=== PATIENT | male | born 1960 | race Two or more races ===

== ENCOUNTER 2017-01-28 19:46 | Inpatient (IN) | payer MEDICARE ==
[~2017-01-28] VITALS: Ht 167.6 cm; Wt 79.8 kg
[2017-01-28] MEDS ORDERED: ACETAMINOPHEN 500 MG TABLET PO ONE (20:30)
[2017-01-28] MEDS ORDERED: SODIUM CHLORIDE FLUSH 10ML SYR IVF ONE (20:30)
[2017-01-28] MEDS ORDERED: SODIUM CHLORIDE 0.9% 1,000ML IVBOLUS ONE (20:30)
[2017-01-28] MEDS ORDERED: DIPH,PERTUSS(ACELL),TET VAC/PF 0.5 ML IM-VACC ONE ×2 (20:30→20:34)
[2017-01-28] MEDS ORDERED: ACETAMINOPHEN 500 MG TABLET ONE (20:33)
[2017-01-28] MEDS ORDERED: NAPR500T3 PO (21:10)
[2017-01-28] MEDS ORDERED: HIGH BP MED (21:12)
[2017-01-28] MEDS ORDERED: INSU100C5 SQ-INSULIN (21:12)
[2017-01-28] MEDS ORDERED: BP MED (21:12)
[2017-01-28 21:48] LABS: ASPARTATE AMINO TRANSFERASE 25 U/L (15-37); BLOOD UREA NITROGEN 32 mg/dL (7-18)
[2017-01-28 21:56] LABS: C-REACTIVE PROTEIN, QUANT > 19.00 mg/dL (0.02-0.49)
[2017-01-28] MEDS ORDERED: VANCOMYCIN 1,600 MG in SODIUM CHLORIDE 0.9% 250 ML IV ONE (22:00)
[2017-01-28] MEDS ORDERED: CEFTRIAXONE 1,000 MG IM ONE ×2 (22:00)
[2017-01-28] MEDS ORDERED: VANCOMYCIN PER PHARMACY MC ONE (22:00)
[2017-01-28] MEDS ORDERED: PHARMACOKINETIC CONSULTATION MC ONE (22:00)
[2017-01-28] MEDS ORDERED: CEFTRIAXONE PMX 1GM/50ML 50 ML ONE (22:05)
[2017-01-28 22:09] LABS: DIFF TOTAL CELLS COUNTED 100 CELL DIFF
[2017-01-28] MEDS ORDERED: CEFTRIAXONE 1,000 MG ONE (22:10)
[2017-01-28 22:13] LABS: VERIFY COUNTS? YES
[2017-01-28] MEDS ORDERED: CEFTRIAXONE PMX 2GM/50ML 50 ML ONE (22:15)
[2017-01-28] MEDS ORDERED: CEFTRIAXONE 2 GM in SODIUM CHLORIDE 0.9% 50 ML IV ONE (23:00)
[2017-01-28] MEDS ORDERED: CEFTRIAXONE 1,000 MG in SODIUM CHLORIDE 0.9% 50 ML IV SCH (23:30)
[2017-01-28] MEDS ORDERED: VANCOMYCIN PER PHARMACY MC PRN (23:30)
[2017-01-28] MEDS ORDERED: morphine SULFATE 10 MG/ML, 1ML IVPush PRN (23:30)
[2017-01-28] MEDS ORDERED: BISACODYL 10 MG SUPP PR PRN (23:30)
[2017-01-28] MEDS: HEPARIN 5,000 UNITS/ML, 1ML SQ SCH (23:30)
[2017-01-28] MEDS ORDERED: POLYETHYLENE GLYCOL 17 GM PACKET PO PRN (23:30)
[2017-01-29 00:51] VITALS: BP 119/60
[2017-01-29] MEDS ORDERED: PHARMACOKINETIC MONITORING MC PRN (01:00)
[2017-01-29] MEDS ORDERED: PHARMACOKINETIC CONSULTATION MC ONE (01:00)
[2017-01-29] MEDS: VANCOMYCIN 1,400 MG in SODIUM CHLORIDE 0.9% 250 ML IV SCH (01:16)
[2017-01-29] MEDS: SODIUM CHLORIDE 0.9% 1,000 ML IV SCH ×2 (01:16→13:08)
[2017-01-29 03:10] VITALS: BP 126/82
[2017-01-29 06:20] LABS: BLOOD UREA NITROGEN 28 mg/dL (7-18)
[2017-01-29 06:25] LABS: ASPARTATE AMINO TRANSFERASE 10 U/L (15-37)
[2017-01-29] MEDS: INSULIN ASPART 100 UNITS/ML, PEN SQ-INSULIN SCH ×5 (07:00→22:17)
[2017-01-29 07:12] VITALS: BP 144/65
[2017-01-29] MEDS ORDERED: GADOBUTROL 7.5 MMOL/7.5 ML PFS ONE (07:52)
[2017-01-29] MEDS: SENNA/DOCUSATE TABLET PO SCH (09:53)
[2017-01-29] MEDS: HEPARIN 5,000 UNITS/ML, 1ML SQ SCH ×2 (09:54→16:38)
[2017-01-29 12:58] VITALS: BP 141/79
[2017-01-29] MEDS: CEFTRIAXONE PMX 1GM/50ML 50 ML IV SCH (13:04)
[2017-01-29] MEDS: INSULIN DETEMIR 100 UNITS/ML, PEN SQ-INSULIN SCH (13:05)
[2017-01-29] MEDS ORDERED: PNEUMOCOCCAL 23 VACCINE IM-VACC ONE (19:00)
[2017-01-29 19:10] VITALS: BP 144/72
[2017-01-29] MEDS: ACETAMINOPHEN 325 MG TABLET PO PRN (19:17)
[2017-01-30] MEDS: HEPARIN 5,000 UNITS/ML, 1ML SQ SCH ×4 (00:21→23:07)
[2017-01-30] MEDS: CEFTRIAXONE PMX 1GM/50ML 50 ML IV SCH (00:21)
[2017-01-30] MEDS: SODIUM CHLORIDE 0.9% 1,000 ML IV SCH ×3 (00:21→21:11)
[2017-01-30] MEDS: INSULIN DETEMIR 100 UNITS/ML, PEN SQ-INSULIN SCH ×3 (00:22→23:09)
[2017-01-30] MEDS: VANCOMYCIN 1,400 MG in SODIUM CHLORIDE 0.9% 250 ML IV SCH ×2 (01:37→18:04)
[2017-01-30 02:15] VITALS: BP 131/67
[2017-01-30 06:14] LABS: BLOOD UREA NITROGEN 19 mg/dL (7-18)
[2017-01-30] MEDS: INSULIN ASPART 100 UNITS/ML, PEN SQ-INSULIN SCH ×4 (07:35→21:12)
[2017-01-30] MEDS: SENNA/DOCUSATE TABLET PO SCH (07:45)
[2017-01-30 08:02] VITALS: BP 143/68
[2017-01-30] MEDS: PIPERACILLIN/TAZO 3.375 GM in SODIUM CHLORIDE 0.9% 50 ML IV SCH ×2 (08:39→14:44)
[2017-01-30] MEDS: ACETAMINOPHEN 325 MG TABLET PO PRN ×2 (08:39→14:43)
[2017-01-30 14:31] VITALS: BP 167/82
[2017-01-30] MEDS: PIPERACILLIN/TAZO/PMX 3.375GM 50 ML IV SCH (20:22)
[2017-01-30 20:37] VITALS: BP 167/77
[2017-01-30] MEDS: ONDANSETRON 2MG/ML, 2ML IVPush PRN (23:08)
[2017-01-31 01:00] VITALS: BP 144/75
[2017-01-31] MEDS: PIPERACILLIN/TAZO/PMX 3.375GM 50 ML IV SCH ×4 (02:00→19:53)
[2017-01-31] MEDS: SODIUM CHLORIDE 0.9% 1,000 ML IV SCH ×3 (05:33→23:51)
[2017-01-31 06:11] LABS: ASPARTATE AMINO TRANSFERASE 23 U/L (15-37); BLOOD UREA NITROGEN 18 mg/dL (7-18)
[2017-01-31 07:03] VITALS: BP 155/76
[2017-01-31] MEDS: INSULIN ASPART 100 UNITS/ML, PEN SQ-INSULIN SCH ×4 (07:39→20:37)
[2017-01-31] MEDS: SENNA/DOCUSATE TABLET PO SCH (07:54)
[2017-01-31] MEDS: HEPARIN 5,000 UNITS/ML, 1ML SQ SCH ×3 (07:55→23:30)
[2017-01-31] MEDS: ACETAMINOPHEN 325 MG TABLET PO PRN ×2 (08:12→14:27)
[2017-01-31] MEDS: INSULIN DETEMIR 100 UNITS/ML, PEN SQ-INSULIN SCH ×2 (12:05→23:52)
[2017-01-31] MEDS: VANCOMYCIN 1,400 MG in SODIUM CHLORIDE 0.9% 250 ML IV SCH (12:06)
[2017-01-31 12:48] VITALS: BP 165/79
[2017-01-31] MEDS: ONDANSETRON 2MG/ML, 2ML IVPush PRN (13:04)
[2017-01-31] MEDS: CLINDAMYCIN PMX 900MG/50ML 50 ML IV SCH ×2 (17:48→23:51)
[2017-01-31 19:27] VITALS: BP 152/78
[2017-02-01 00:46] VITALS: BP 148/71
[2017-02-01] MEDS: PIPERACILLIN/TAZO/PMX 3.375GM 50 ML IV SCH ×2 (01:39→07:50)
[2017-02-01 04:49] LABS: BLOOD UREA NITROGEN 17 mg/dL (7-18)
[2017-02-01] MEDS: ONDANSETRON 2MG/ML, 2ML IVPush PRN ×3 (05:34→17:57)
[2017-02-01] MEDS: VANCOMYCIN 1,400 MG in SODIUM CHLORIDE 0.9% 250 ML IV SCH (05:34)
[2017-02-01 07:16] VITALS: BP 155/77
[2017-02-01] MEDS: SENNA/DOCUSATE TABLET PO SCH (07:49)
[2017-02-01] MEDS: HEPARIN 5,000 UNITS/ML, 1ML SQ SCH ×3 (07:50→22:36)
[2017-02-01] MEDS: INSULIN ASPART 100 UNITS/ML, PEN SQ-INSULIN SCH ×4 (07:59→22:37)
[2017-02-01] MEDS: CLINDAMYCIN PMX 900MG/50ML 50 ML IV SCH (09:08)
[2017-02-01] MEDS: SODIUM CHLORIDE 0.9% 1,000 ML IV SCH ×2 (10:00→15:42)
[2017-02-01] MEDS: INSULIN DETEMIR 100 UNITS/ML, PEN SQ-INSULIN SCH ×2 (11:10→22:37)
[2017-02-01] MEDS: AMPICILLIN/SULBACTAM 3 GM in SODIUM CHLORIDE 0.9% 100 ML IV SCH ×2 (11:57→20:14)
[2017-02-01] MEDS: ACETAMINOPHEN 325 MG TABLET PO PRN (12:03)
[2017-02-01 15:50] VITALS: BP 160/80
[2017-02-01 19:16] VITALS: BP 173/76
[2017-02-02 00:53] VITALS: BP 157/76
[2017-02-02] MEDS: AMPICILLIN/SULBACTAM 3 GM in SODIUM CHLORIDE 0.9% 100 ML IV SCH ×3 (05:02→21:04)
[2017-02-02 06:14] LABS: BLOOD UREA NITROGEN 14 mg/dL (7-18)
[2017-02-02 06:35] LABS: DIFF TOTAL CELLS COUNTED 100 CELL DIFF
[2017-02-02 06:37] LABS: ANISOCYTOSIS 1+; VERIFY COUNTS? YES
[2017-02-02] MEDS: SENNA/DOCUSATE TABLET PO SCH (08:05)
[2017-02-02] MEDS: HEPARIN 5,000 UNITS/ML, 1ML SQ SCH ×3 (08:07→22:49)
[2017-02-02] MEDS: INSULIN ASPART 100 UNITS/ML, PEN SQ-INSULIN SCH ×4 (08:08→21:53)
[2017-02-02] MEDS: SODIUM CHLORIDE 0.9% 1,000 ML IV SCH ×2 (08:10→22:51)
[2017-02-02] MEDS: ONDANSETRON 2MG/ML, 2ML IVPush PRN ×2 (08:10→16:07)
[2017-02-02 09:26] VITALS: BP 157/77
[2017-02-02] MEDS: INSULIN DETEMIR 100 UNITS/ML, PEN SQ-INSULIN SCH ×2 (11:36→21:52)
[2017-02-02 13:31] VITALS: BP 129/70
[2017-02-02 19:24] VITALS: BP 178/84
[2017-02-03 02:26] VITALS: BP 163/79
[2017-02-03] MEDS: AMPICILLIN/SULBACTAM 3 GM in SODIUM CHLORIDE 0.9% 100 ML IV SCH ×3 (04:09→20:12)
[2017-02-03 05:49] LABS: BLOOD UREA NITROGEN 11 mg/dL (7-18)
[2017-02-03] MEDS: INSULIN ASPART 100 UNITS/ML, PEN SQ-INSULIN SCH ×4 (07:00→20:29)
[2017-02-03 08:09] VITALS: BP 163/77
[2017-02-03] MEDS: SENNA/DOCUSATE TABLET PO SCH (08:48)
[2017-02-03] MEDS: HEPARIN 5,000 UNITS/ML, 1ML SQ SCH ×3 (08:48→22:36)
[2017-02-03] MEDS: INSULIN DETEMIR 100 UNITS/ML, PEN SQ-INSULIN SCH (11:31)
[2017-02-03 12:30] VITALS: BP 176/83
[2017-02-03] MEDS: SODIUM CHLORIDE 0.9% 1,000 ML IV SCH (16:33)
[2017-02-03 19:14] VITALS: BP 187/86
[2017-02-03] MEDS ORDERED: INSULIN DETEMIR 100 UNITS/ML, PEN SQ-INSULIN SCH (23:00)
[2017-02-04 01:28] VITALS: BP 137/73
[2017-02-04] MEDS: AMPICILLIN/SULBACTAM 3 GM in SODIUM CHLORIDE 0.9% 100 ML IV SCH ×3 (03:58→20:21)
[2017-02-04] MEDS: SODIUM CHLORIDE 0.9% 1,000 ML IV SCH ×2 (03:59→20:21)
[2017-02-04 04:46] LABS: BLOOD UREA NITROGEN 11 mg/dL (7-18)
[2017-02-04 07:21] VITALS: BP 156/80
[2017-02-04] MEDS: INSULIN ASPART 100 UNITS/ML, PEN SQ-INSULIN SCH ×4 (08:21→20:22)
[2017-02-04] MEDS: SENNA/DOCUSATE TABLET PO SCH (08:22)
[2017-02-04] MEDS: HEPARIN 5,000 UNITS/ML, 1ML SQ SCH ×3 (08:22→23:01)
[2017-02-04] MEDS: INSULIN DETEMIR 100 UNITS/ML, PEN SQ-INSULIN SCH ×2 (11:54→23:02)
[2017-02-04 13:56] VITALS: BP 171/79
[2017-02-04 19:09] VITALS: BP 157/75
[2017-02-05 01:50] VITALS: BP 97/58
[2017-02-05] MEDS: AMPICILLIN/SULBACTAM 3 GM in SODIUM CHLORIDE 0.9% 100 ML IV SCH ×3 (03:59→19:59)
[2017-02-05 05:29] LABS: BLOOD UREA NITROGEN 10 mg/dL (7-18)
[2017-02-05] MEDS: INSULIN ASPART 100 UNITS/ML, PEN SQ-INSULIN SCH ×4 (07:00→20:15)
[2017-02-05 08:00] VITALS: BP 110/70
[2017-02-05] MEDS: HEPARIN 5,000 UNITS/ML, 1ML SQ SCH ×3 (08:24→23:39)
[2017-02-05] MEDS: SENNA/DOCUSATE TABLET PO SCH (08:25)
[2017-02-05] MEDS: SODIUM CHLORIDE 0.9% 1,000 ML IV SCH ×3 (08:25→23:38)
[2017-02-05] MEDS: INSULIN DETEMIR 100 UNITS/ML, PEN SQ-INSULIN SCH ×2 (13:09→23:39)
[2017-02-05 14:30] VITALS: BP 156/82
[2017-02-05 19:02] VITALS: BP 167/79
[2017-02-06 02:45] VITALS: BP 173/77
[2017-02-06] MEDS: AMPICILLIN/SULBACTAM 3 GM in SODIUM CHLORIDE 0.9% 100 ML IV SCH ×3 (03:50→20:04)
[2017-02-06 05:33] LABS: BLOOD UREA NITROGEN 10 mg/dL (7-18)
[2017-02-06 05:37] LABS: ASPARTATE AMINO TRANSFERASE 30 U/L (15-37)
[2017-02-06] MEDS: INSULIN ASPART 100 UNITS/ML, PEN SQ-INSULIN SCH ×4 (07:00→20:23)
[2017-02-06 07:48] VITALS: BP 178/91
[2017-02-06] MEDS ORDERED: POTASSIUM CHLORIDE 20 MEQ TAB.ER.PRT PO ONE ×3 (08:00→18:30)
[2017-02-06] MEDS: SENNA/DOCUSATE TABLET PO SCH (08:10)
[2017-02-06] MEDS: ONDANSETRON 2MG/ML, 2ML IVPush PRN (08:16)
[2017-02-06] MEDS: ACETAMINOPHEN 325 MG TABLET PO PRN ×2 (08:16→20:23)
[2017-02-06] MEDS: HEPARIN 5,000 UNITS/ML, 1ML SQ SCH ×3 (08:17→23:53)
[2017-02-06] MEDS: INSULIN DETEMIR 100 UNITS/ML, PEN SQ-INSULIN SCH ×2 (11:57→23:46)
[2017-02-06 16:51] VITALS: BP 167/79
[2017-02-06 19:51] VITALS: BP 158/74
[2017-02-07 01:36] VITALS: BP 164/78
[2017-02-07] MEDS: AMPICILLIN/SULBACTAM 3 GM in SODIUM CHLORIDE 0.9% 100 ML IV SCH ×3 (03:58→20:56)
[2017-02-07 05:29] LABS: ASPARTATE AMINO TRANSFERASE 38 U/L (15-37); BLOOD UREA NITROGEN 14 mg/dL (7-18)
[2017-02-07] MEDS ORDERED: MAGNESIUM SULFATE PMX 2GM/50ML 50 ML IV ONE (07:30)
[2017-02-07] MEDS: SENNA/DOCUSATE TABLET PO SCH (07:35)
[2017-02-07] MEDS: INSULIN ASPART 100 UNITS/ML, PEN SQ-INSULIN SCH ×4 (07:35→20:56)
[2017-02-07 08:27] VITALS: BP 163/84
[2017-02-07] MEDS: HEPARIN 5,000 UNITS/ML, 1ML SQ SCH ×3 (09:08→23:51)
[2017-02-07] MEDS: INSULIN DETEMIR 100 UNITS/ML, PEN SQ-INSULIN SCH ×2 (11:52→23:52)
[2017-02-07 13:21] VITALS: BP 152/82
[2017-02-07 20:07] VITALS: BP 127/78
[2017-02-08] MEDS: AMPICILLIN/SULBACTAM 3 GM in SODIUM CHLORIDE 0.9% 100 ML IV SCH ×4 (04:04→23:44)
[2017-02-08 04:17] VITALS: BP 158/81
[2017-02-08 05:39] LABS: BLOOD UREA NITROGEN 13 mg/dL (7-18)
[2017-02-08] MEDS: INSULIN ASPART 100 UNITS/ML, PEN SQ-INSULIN SCH ×4 (07:00→20:20)
[2017-02-08 07:10] VITALS: BP 139/74
[2017-02-08] MEDS: SENNA/DOCUSATE TABLET PO SCH (08:21)
[2017-02-08] MEDS: HEPARIN 5,000 UNITS/ML, 1ML SQ SCH ×3 (08:22→23:44)
[2017-02-08] MEDS: INSULIN DETEMIR 100 UNITS/ML, PEN SQ-INSULIN SCH ×2 (12:02→23:32)
[2017-02-08 13:45] VITALS: BP 186/89
[2017-02-08 15:54] VITALS: BP 160/76
[2017-02-08] MEDS: ACETAMINOPHEN 325 MG TABLET PO PRN (16:06)
[2017-02-08 19:40] VITALS: BP 137/77
[2017-02-08] MEDS: DOXYCYCLINE 100MG TABLET PO SCH (20:24)
[2017-02-09 01:18] VITALS: BP 129/72
[2017-02-09 05:11] LABS: BLOOD UREA NITROGEN 15 mg/dL (7-18)
[2017-02-09] MEDS: AMPICILLIN/SULBACTAM 3 GM in SODIUM CHLORIDE 0.9% 100 ML IV SCH ×4 (05:47→23:42)
[2017-02-09] MEDS: INSULIN ASPART 100 UNITS/ML, PEN SQ-INSULIN SCH ×4 (07:00→20:13)
[2017-02-09 07:16] VITALS: BP 149/78
[2017-02-09] MEDS: SENNA/DOCUSATE TABLET PO SCH (09:00)
[2017-02-09] MEDS: HEPARIN 5,000 UNITS/ML, 1ML SQ SCH ×2 (09:27→17:28)
[2017-02-09] MEDS: DOXYCYCLINE 100MG TABLET PO SCH ×2 (09:27→20:12)
[2017-02-09] MEDS: INSULIN DETEMIR 100 UNITS/ML, PEN SQ-INSULIN SCH ×2 (11:28→23:42)
[2017-02-09 13:50] VITALS: BP 171/87
[2017-02-09 19:21] VITALS: BP 163/85
[2017-02-10] MEDS: HEPARIN 5,000 UNITS/ML, 1ML SQ SCH ×3 (02:04→17:41)
[2017-02-10 02:45] VITALS: BP 172/91
[2017-02-10 04:51] LABS: BLOOD UREA NITROGEN 14 mg/dL (7-18)
[2017-02-10 04:54] LABS: ASPARTATE AMINO TRANSFERASE 20 U/L (15-37)
[2017-02-10] MEDS: AMPICILLIN/SULBACTAM 3 GM in SODIUM CHLORIDE 0.9% 100 ML IV SCH ×4 (05:51→23:31)
[2017-02-10 07:00] VITALS: BP 156/86
[2017-02-10] MEDS: INSULIN ASPART 100 UNITS/ML, PEN SQ-INSULIN SCH ×4 (07:00→21:39)
[2017-02-10] MEDS: SENNA/DOCUSATE TABLET PO SCH (08:35)
[2017-02-10] MEDS: ACETAMINOPHEN 325 MG TABLET PO PRN (08:40)
[2017-02-10] MEDS: DOXYCYCLINE 100MG TABLET PO SCH ×2 (08:40→21:39)
[2017-02-10] MEDS: INSULIN DETEMIR 100 UNITS/ML, PEN SQ-INSULIN SCH ×2 (11:59→21:39)
[2017-02-10 13:08] VITALS: BP 174/88
[2017-02-10 15:01] VITALS: BP 146/72
[2017-02-10 19:49] VITALS: BP 150/81
[2017-02-10] MEDS: ONDANSETRON 2MG/ML, 2ML IVPush PRN (21:43)
[2017-02-10] MEDS: OXYcodone IR 5MG TABLET PO PRN (21:49)
[2017-02-11 02:53] VITALS: BP 130/88
[2017-02-11] MEDS: HEPARIN 5,000 UNITS/ML, 1ML SQ SCH ×3 (05:13→21:49)
[2017-02-11] MEDS: AMPICILLIN/SULBACTAM 3 GM in SODIUM CHLORIDE 0.9% 100 ML IV SCH ×3 (05:13→19:41)
[2017-02-11 05:24] LABS: BLOOD UREA NITROGEN 14 mg/dL (7-18)
[2017-02-11 06:51] VITALS: BP 148/80
[2017-02-11] MEDS: INSULIN ASPART 100 UNITS/ML, PEN SQ-INSULIN SCH ×5 (07:00→19:47)
[2017-02-11] MEDS: SENNA/DOCUSATE TABLET PO SCH ×2 (08:02→08:28)
[2017-02-11] MEDS: DOXYCYCLINE 100MG TABLET PO SCH ×3 (08:03→19:41)
[2017-02-11] MEDS: OXYcodone IR 5MG TABLET PO PRN (08:28)
[2017-02-11 13:05] VITALS: BP 149/79
[2017-02-11] MEDS: INSULIN DETEMIR 100 UNITS/ML, PEN SQ-INSULIN SCH (14:16)
[2017-02-11 19:43] VITALS: BP 124/70
[2017-02-12 02:01] VITALS: BP 150/84
[2017-02-12] MEDS: AMPICILLIN/SULBACTAM 3 GM in SODIUM CHLORIDE 0.9% 100 ML IV SCH ×4 (02:17→20:09)
[2017-02-12] MEDS: INSULIN DETEMIR 100 UNITS/ML, PEN SQ-INSULIN SCH ×2 (02:22→16:54)
[2017-02-12] MEDS: HEPARIN 5,000 UNITS/ML, 1ML SQ SCH ×3 (05:39→22:55)
[2017-02-12 05:50] LABS: BLOOD UREA NITROGEN 17 mg/dL (7-18)
[2017-02-12 06:52] VITALS: BP 159/87
[2017-02-12] MEDS: INSULIN ASPART 100 UNITS/ML, PEN SQ-INSULIN SCH ×4 (07:00→20:10)
[2017-02-12] MEDS: DOXYCYCLINE 100MG TABLET PO SCH ×2 (08:30→20:10)
[2017-02-12] MEDS: SENNA/DOCUSATE TABLET PO SCH (08:30)
[2017-02-12 12:27] VITALS: BP 161/79
[2017-02-12 18:51] VITALS: BP 162/78
[2017-02-13] MEDS: AMPICILLIN/SULBACTAM 3 GM in SODIUM CHLORIDE 0.9% 100 ML IV SCH ×4 (01:58→20:17)
[2017-02-13 02:09] VITALS: BP 150/80
[2017-02-13] MEDS: INSULIN ASPART 100 UNITS/ML, PEN SQ-INSULIN SCH ×4 (07:00→20:18)
[2017-02-13 07:55] VITALS: BP 168/89
[2017-02-13] MEDS: SENNA/DOCUSATE TABLET PO SCH (09:00)
[2017-02-13] MEDS: HEPARIN 5,000 UNITS/ML, 1ML SQ SCH ×3 (09:02→22:54)
[2017-02-13] MEDS: INSULIN DETEMIR 100 UNITS/ML, PEN SQ-INSULIN SCH ×2 (09:03→20:18)
[2017-02-13] MEDS: DOXYCYCLINE 100MG TABLET PO SCH ×2 (09:03→20:17)
[2017-02-13 13:00] VITALS: BP 183/96
[2017-02-13] MEDS ORDERED: LABETALOL 5MG/ML, 20ML IVPush PRN (15:00)
[2017-02-13] MEDS: AMLODIPINE 5 MG TABLET PO SCH (15:03)
[2017-02-13 15:40] VITALS: BP 155/85
[2017-02-13] MEDS ORDERED: BISACODYL 10 MG SUPP PR PRN (19:30)
[2017-02-13] MEDS ORDERED: ACETAMINOPHEN 325 MG TABLET PO PRN (19:30)
[2017-02-13] MEDS ORDERED: POLYETHYLENE GLYCOL 17 GM PACKET PO PRN (19:30)
[2017-02-13 19:34] VITALS: BP 154/82
[2017-02-14] MEDS: AMPICILLIN/SULBACTAM 3 GM in SODIUM CHLORIDE 0.9% 100 ML IV SCH ×2 (01:58→08:23)
[2017-02-14 03:16] VITALS: BP 146/78
[2017-02-14 05:33] LABS: BLOOD UREA NITROGEN 12 mg/dL (7-18)
[2017-02-14] MEDS: INSULIN ASPART 100 UNITS/ML, PEN SQ-INSULIN SCH (07:00)
[2017-02-14] MEDS ORDERED: AMOX1TAB64 PO (08:09)
[2017-02-14] MEDS ORDERED: DOXY100C2 PO (08:09)
[2017-02-14] MEDS ORDERED: INSU100V5 SQ-INSULIN (08:10)
[2017-02-14] MEDS ORDERED: AMLO5TAB2 PO (08:11)
[2017-02-14] MEDS ORDERED: INSU100I28 SQ-INSULIN (08:17)
[2017-02-14 08:18] VITALS: BP 160/79
[2017-02-14] MEDS: HEPARIN 5,000 UNITS/ML, 1ML SQ SCH (08:22)
[2017-02-14] MEDS: AMLODIPINE 5 MG TABLET PO SCH (08:23)
[2017-02-14] MEDS: SENNA/DOCUSATE TABLET PO SCH (08:23)
[2017-02-14] MEDS: DOXYCYCLINE 100MG TABLET PO SCH (08:23)
[2017-02-14] MEDS: INSULIN DETEMIR 100 UNITS/ML, PEN SQ-INSULIN SCH (08:24)
== END 2017-02-14 12:30 | disposition home or self-care (01) | DRG 871 ==
LOC: ED 21:39 → EDIP 22:19 → 3NE 01-29 00:13 → DCLOUNGE 02-14 12:03
PROVIDERS: ADMIT Internal Medicine; ATTEND Internal Medicine
DX: A41.9 Sepsis, unspecified organism (principal); N17.0 Acute kidney failure with tubular necrosis; E43 Unspecified severe protein-calorie malnutrition; J18.9 Pneumonia, unspecified organism; E87.1 Hypo-osmolality and hyponatremia; L03.116 Cellulitis of left lower limb; M86.9 Osteomyelitis, unspecified; D64.9 Anemia, unspecified; E11.621 Type 2 diabetes mellitus with foot ulcer; E11.65 Type 2 diabetes mellitus with hyperglycemia; E11.69 Type 2 diabetes mellitus with other specified complication; B07.0 Plantar wart; E11.22 Type 2 diabetes mellitus with diabetic chronic kidney disease; I12.9 Hypertensive chronic kidney disease with stage 1 through stage 4 chronic kidney disease, or unspecified chronic kidney disease; L97.509 Non-pressure chronic ulcer of other part of unspecified foot with unspecified severity; M19.072 Primary osteoarthritis, left ankle and foot; N18.3 Chronic kidney disease, stage 3 (moderate); Z79.4 Long term (current) use of insulin; Z68.28 Body mass index [BMI] 28.0-28.9, adult; Z87.891 Personal history of nicotine dependence
CPT/HCPCS: 36415; 71020; 74000; 76770; 80048; 80053; 81001; 82040; 82570; 82962; 83036; 83605; 83735; 84145; 84156; 85025; 85651; 86140; 86141; 87040; 87070; 87077; 87186; 87205; 90471; 90715; 90732; 93005; 93922; 93970; 96361; 96374; A9585; J0295; J0696; J1644; J1815; J2405; J2543; J3370; J3475; J7030; J7050

== ENCOUNTER → 2017-02-17 | Outpatient (CLI) | payer MEDICARE ==
[~2017-02-17] MED LIST: AMLO5TAB2 PO; AMOX1TAB64 PO; BP MED; DOXY100C2 PO; HIGH BP MED; INSU100C5 SQ-INSULIN; INSU100I28 SQ-INSULIN; INSU100V5 SQ-INSULIN; NAPR500T3 PO
== END | disposition home or self-care (01) ==
LOC: CFH 14:03
PROVIDERS: ATTEND Podiatrist Foot & Ankle Surgery
DX: J90 Pleural effusion, not elsewhere classified (principal); R91.8 Other nonspecific abnormal finding of lung field; E11.621 Type 2 diabetes mellitus with foot ulcer
CPT/HCPCS: 71020

== ENCOUNTER → 2017-02-17 | Outpatient (CLI) | payer MEDICARE | END | disposition home or self-care (01) | LOC: WOUND 10:46 | PROVIDERS: ATTEND Podiatrist Foot & Ankle Surgery | DX: E11.621 Type 2 diabetes mellitus with foot ulcer (principal); L97.521 Non-pressure chronic ulcer of other part of left foot limited to breakdown of skin; E11.40 Type 2 diabetes mellitus with diabetic neuropathy, unspecified; E11.52 Type 2 diabetes mellitus with diabetic peripheral angiopathy with gangrene; I10 Essential (primary) hypertension; E11.22 Type 2 diabetes mellitus with diabetic chronic kidney disease; I12.9 Hypertensive chronic kidney disease with stage 1 through stage 4 chronic kidney disease, or unspecified chronic kidney disease; N18.3 Chronic kidney disease, stage 3 (moderate); E11.69 Type 2 diabetes mellitus with other specified complication; M86.8X8 Other osteomyelitis, other site; M19.072 Primary osteoarthritis, left ankle and foot; E43 Unspecified severe protein-calorie malnutrition; Z68.28 Body mass index [BMI] 28.0-28.9, adult; Z79.4 Long term (current) use of insulin; Z87.01 Personal history of pneumonia (recurrent) | CPT/HCPCS: 97602; G0463; WOU0463 ==

== ENCOUNTER → 2017-02-24 | Outpatient (CLI) | payer MEDICARE | END | disposition home or self-care (01) | LOC: WOUND 14:15 | PROVIDERS: ATTEND Podiatrist Foot & Ankle Surgery | DX: E11.621 Type 2 diabetes mellitus with foot ulcer (principal); L97.521 Non-pressure chronic ulcer of other part of left foot limited to breakdown of skin; E11.52 Type 2 diabetes mellitus with diabetic peripheral angiopathy with gangrene; E11.40 Type 2 diabetes mellitus with diabetic neuropathy, unspecified; E11.22 Type 2 diabetes mellitus with diabetic chronic kidney disease; I12.9 Hypertensive chronic kidney disease with stage 1 through stage 4 chronic kidney disease, or unspecified chronic kidney disease; N18.3 Chronic kidney disease, stage 3 (moderate); M19.072 Primary osteoarthritis, left ankle and foot; E11.69 Type 2 diabetes mellitus with other specified complication; M86.8X8 Other osteomyelitis, other site; Z79.4 Long term (current) use of insulin; Z87.01 Personal history of pneumonia (recurrent); Z87.891 Personal history of nicotine dependence | CPT/HCPCS: 11043 ==

== ENCOUNTER → 2017-03-03 | Outpatient (CLI) | payer MEDICARE | END | disposition home or self-care (01) | LOC: WOUND 14:55 | PROVIDERS: ATTEND Podiatrist Foot & Ankle Surgery | DX: E11.621 Type 2 diabetes mellitus with foot ulcer (principal); L97.521 Non-pressure chronic ulcer of other part of left foot limited to breakdown of skin; E11.40 Type 2 diabetes mellitus with diabetic neuropathy, unspecified; E11.52 Type 2 diabetes mellitus with diabetic peripheral angiopathy with gangrene; E11.65 Type 2 diabetes mellitus with hyperglycemia; E11.22 Type 2 diabetes mellitus with diabetic chronic kidney disease; I12.9 Hypertensive chronic kidney disease with stage 1 through stage 4 chronic kidney disease, or unspecified chronic kidney disease; N18.4 Chronic kidney disease, stage 4 (severe); E11.69 Type 2 diabetes mellitus with other specified complication; M86.8X8 Other osteomyelitis, other site; E43 Unspecified severe protein-calorie malnutrition; Z87.891 Personal history of nicotine dependence; Z87.01 Personal history of pneumonia (recurrent); Z68.28 Body mass index [BMI] 28.0-28.9, adult; Z79.4 Long term (current) use of insulin | CPT/HCPCS: 11043 ==

== ENCOUNTER → 2017-03-10 | Outpatient (CLI) | payer MEDICAID, MEDICARE | END | disposition home or self-care (01) | LOC: WOUND 10:30 | PROVIDERS: ATTEND Podiatrist Foot & Ankle Surgery | DX: E11.621 Type 2 diabetes mellitus with foot ulcer (principal); L97.521 Non-pressure chronic ulcer of other part of left foot limited to breakdown of skin; E11.40 Type 2 diabetes mellitus with diabetic neuropathy, unspecified; E11.52 Type 2 diabetes mellitus with diabetic peripheral angiopathy with gangrene; E11.69 Type 2 diabetes mellitus with other specified complication; M86.8X8 Other osteomyelitis, other site; E11.65 Type 2 diabetes mellitus with hyperglycemia; M19.072 Primary osteoarthritis, left ankle and foot; E11.22 Type 2 diabetes mellitus with diabetic chronic kidney disease; I12.9 Hypertensive chronic kidney disease with stage 1 through stage 4 chronic kidney disease, or unspecified chronic kidney disease; N18.4 Chronic kidney disease, stage 4 (severe); Z68.28 Body mass index [BMI] 28.0-28.9, adult; Z79.4 Long term (current) use of insulin; Z87.891 Personal history of nicotine dependence; Z87.01 Personal history of pneumonia (recurrent) | CPT/HCPCS: 11043 ==

== ENCOUNTER → 2017-03-17 | Outpatient (CLI) | payer MEDICARE | END | disposition home or self-care (01) | LOC: WOUND 10:36 | PROVIDERS: ATTEND Podiatrist Foot & Ankle Surgery | DX: E11.621 Type 2 diabetes mellitus with foot ulcer (principal); L97.521 Non-pressure chronic ulcer of other part of left foot limited to breakdown of skin; E11.52 Type 2 diabetes mellitus with diabetic peripheral angiopathy with gangrene; E11.40 Type 2 diabetes mellitus with diabetic neuropathy, unspecified; I10 Essential (primary) hypertension; Z68.28 Body mass index [BMI] 28.0-28.9, adult; E11.22 Type 2 diabetes mellitus with diabetic chronic kidney disease; I12.9 Hypertensive chronic kidney disease with stage 1 through stage 4 chronic kidney disease, or unspecified chronic kidney disease; N18.4 Chronic kidney disease, stage 4 (severe); E11.69 Type 2 diabetes mellitus with other specified complication; M86.8X8 Other osteomyelitis, other site; Z87.891 Personal history of nicotine dependence; Z87.01 Personal history of pneumonia (recurrent); M19.072 Primary osteoarthritis, left ankle and foot; E43 Unspecified severe protein-calorie malnutrition | CPT/HCPCS: 11043 ==

== ENCOUNTER → 2017-03-24 | Outpatient (CLI) | payer MEDICARE | END | disposition home or self-care (01) | LOC: WOUND 09:47 | PROVIDERS: ATTEND Podiatrist Foot & Ankle Surgery | DX: E11.621 Type 2 diabetes mellitus with foot ulcer (principal); L97.521 Non-pressure chronic ulcer of other part of left foot limited to breakdown of skin; E11.52 Type 2 diabetes mellitus with diabetic peripheral angiopathy with gangrene; E11.40 Type 2 diabetes mellitus with diabetic neuropathy, unspecified; E11.22 Type 2 diabetes mellitus with diabetic chronic kidney disease; I12.9 Hypertensive chronic kidney disease with stage 1 through stage 4 chronic kidney disease, or unspecified chronic kidney disease; N18.4 Chronic kidney disease, stage 4 (severe); E11.69 Type 2 diabetes mellitus with other specified complication; M86.8X8 Other osteomyelitis, other site; M19.072 Primary osteoarthritis, left ankle and foot; Z87.01 Personal history of pneumonia (recurrent); Z87.891 Personal history of nicotine dependence; Z79.4 Long term (current) use of insulin | CPT/HCPCS: 11042 ==

== ENCOUNTER → 2017-03-31 | Outpatient (CLI) | payer MEDICARE | END | disposition home or self-care (01) | LOC: WOUND 09:48 | PROVIDERS: ATTEND Podiatrist Foot & Ankle Surgery | DX: E11.621 Type 2 diabetes mellitus with foot ulcer (principal); L97.521 Non-pressure chronic ulcer of other part of left foot limited to breakdown of skin; E11.22 Type 2 diabetes mellitus with diabetic chronic kidney disease; I12.9 Hypertensive chronic kidney disease with stage 1 through stage 4 chronic kidney disease, or unspecified chronic kidney disease; N18.4 Chronic kidney disease, stage 4 (severe); E11.69 Type 2 diabetes mellitus with other specified complication; M86.8X8 Other osteomyelitis, other site; M19.072 Primary osteoarthritis, left ankle and foot; E11.40 Type 2 diabetes mellitus with diabetic neuropathy, unspecified; E11.52 Type 2 diabetes mellitus with diabetic peripheral angiopathy with gangrene; Z87.891 Personal history of nicotine dependence; Z87.01 Personal history of pneumonia (recurrent); Z79.4 Long term (current) use of insulin; Z99.2 Dependence on renal dialysis | CPT/HCPCS: 15275; Q4132 ==

== ENCOUNTER → 2017-04-07 | Outpatient (CLI) | payer MEDICARE | END | disposition home or self-care (01) | LOC: WOUND 10:02 | PROVIDERS: ATTEND Podiatrist Foot & Ankle Surgery | DX: E11.621 Type 2 diabetes mellitus with foot ulcer (principal); L97.521 Non-pressure chronic ulcer of other part of left foot limited to breakdown of skin; E11.52 Type 2 diabetes mellitus with diabetic peripheral angiopathy with gangrene; E11.40 Type 2 diabetes mellitus with diabetic neuropathy, unspecified; E11.22 Type 2 diabetes mellitus with diabetic chronic kidney disease; I12.9 Hypertensive chronic kidney disease with stage 1 through stage 4 chronic kidney disease, or unspecified chronic kidney disease; N18.4 Chronic kidney disease, stage 4 (severe); Z99.2 Dependence on renal dialysis; Z79.4 Long term (current) use of insulin; Z87.01 Personal history of pneumonia (recurrent); E11.69 Type 2 diabetes mellitus with other specified complication; M86.8X8 Other osteomyelitis, other site; M19.072 Primary osteoarthritis, left ankle and foot; Z87.891 Personal history of nicotine dependence | CPT/HCPCS: 15275; Q4132 ==

== ENCOUNTER → 2017-04-14 | Outpatient (CLI) | payer MEDICARE | END | disposition home or self-care (01) | LOC: WOUND 10:00 | PROVIDERS: ATTEND Podiatrist Foot & Ankle Surgery | DX: E11.621 Type 2 diabetes mellitus with foot ulcer (principal); L97.521 Non-pressure chronic ulcer of other part of left foot limited to breakdown of skin; E11.22 Type 2 diabetes mellitus with diabetic chronic kidney disease; I12.9 Hypertensive chronic kidney disease with stage 1 through stage 4 chronic kidney disease, or unspecified chronic kidney disease; N18.4 Chronic kidney disease, stage 4 (severe); M19.072 Primary osteoarthritis, left ankle and foot; E11.40 Type 2 diabetes mellitus with diabetic neuropathy, unspecified; E11.52 Type 2 diabetes mellitus with diabetic peripheral angiopathy with gangrene; E11.69 Type 2 diabetes mellitus with other specified complication; M86.8X8 Other osteomyelitis, other site; Z99.2 Dependence on renal dialysis; Z79.4 Long term (current) use of insulin; Z87.891 Personal history of nicotine dependence; Z87.01 Personal history of pneumonia (recurrent) | CPT/HCPCS: 15275; Q4132 ==

== ENCOUNTER → 2017-04-21 | Outpatient (CLI) | payer MEDICARE | END | disposition home or self-care (01) | LOC: WOUND 10:30 | PROVIDERS: ATTEND Podiatrist Foot & Ankle Surgery | DX: E11.621 Type 2 diabetes mellitus with foot ulcer (principal); L97.521 Non-pressure chronic ulcer of other part of left foot limited to breakdown of skin; E11.52 Type 2 diabetes mellitus with diabetic peripheral angiopathy with gangrene; E11.40 Type 2 diabetes mellitus with diabetic neuropathy, unspecified; E11.22 Type 2 diabetes mellitus with diabetic chronic kidney disease; I12.9 Hypertensive chronic kidney disease with stage 1 through stage 4 chronic kidney disease, or unspecified chronic kidney disease; N18.4 Chronic kidney disease, stage 4 (severe); E11.69 Type 2 diabetes mellitus with other specified complication; M86.8X8 Other osteomyelitis, other site; M19.072 Primary osteoarthritis, left ankle and foot; Z87.891 Personal history of nicotine dependence; Z87.01 Personal history of pneumonia (recurrent); Z79.4 Long term (current) use of insulin; Z99.2 Dependence on renal dialysis | CPT/HCPCS: 15275; Q4132 ==

== ENCOUNTER → 2017-04-28 | Outpatient (CLI) | payer MEDICARE | END | disposition home or self-care (01) | LOC: WOUND 15:00 | PROVIDERS: ATTEND Podiatrist Foot & Ankle Surgery | DX: E11.621 Type 2 diabetes mellitus with foot ulcer (principal); L97.521 Non-pressure chronic ulcer of other part of left foot limited to breakdown of skin; E11.52 Type 2 diabetes mellitus with diabetic peripheral angiopathy with gangrene; E11.40 Type 2 diabetes mellitus with diabetic neuropathy, unspecified; E11.22 Type 2 diabetes mellitus with diabetic chronic kidney disease; I12.9 Hypertensive chronic kidney disease with stage 1 through stage 4 chronic kidney disease, or unspecified chronic kidney disease; N18.4 Chronic kidney disease, stage 4 (severe); E11.69 Type 2 diabetes mellitus with other specified complication; M86.8X8 Other osteomyelitis, other site; M19.072 Primary osteoarthritis, left ankle and foot; Z87.891 Personal history of nicotine dependence; Z87.01 Personal history of pneumonia (recurrent); Z99.2 Dependence on renal dialysis; Z79.4 Long term (current) use of insulin | CPT/HCPCS: 15275; Q4133 ==

== ENCOUNTER → 2017-05-05 | Outpatient (CLI) | payer MEDICARE | END | disposition home or self-care (01) | LOC: WOUND 08:23 | PROVIDERS: ATTEND Podiatrist Foot & Ankle Surgery | DX: E11.621 Type 2 diabetes mellitus with foot ulcer (principal); L97.521 Non-pressure chronic ulcer of other part of left foot limited to breakdown of skin; E11.52 Type 2 diabetes mellitus with diabetic peripheral angiopathy with gangrene; E11.40 Type 2 diabetes mellitus with diabetic neuropathy, unspecified; E11.22 Type 2 diabetes mellitus with diabetic chronic kidney disease; I12.9 Hypertensive chronic kidney disease with stage 1 through stage 4 chronic kidney disease, or unspecified chronic kidney disease; N18.4 Chronic kidney disease, stage 4 (severe); E11.69 Type 2 diabetes mellitus with other specified complication; M86.8X8 Other osteomyelitis, other site; M19.072 Primary osteoarthritis, left ankle and foot; Z87.891 Personal history of nicotine dependence; Z87.01 Personal history of pneumonia (recurrent); Z99.2 Dependence on renal dialysis; Z79.4 Long term (current) use of insulin | CPT/HCPCS: 11042 ==

== ENCOUNTER → 2017-05-12 | Outpatient (CLI) | payer MEDICARE | END | disposition home or self-care (01) | LOC: WOUND 08:31 | PROVIDERS: ATTEND Podiatrist Foot & Ankle Surgery | DX: E11.621 Type 2 diabetes mellitus with foot ulcer (principal); L97.521 Non-pressure chronic ulcer of other part of left foot limited to breakdown of skin; E11.52 Type 2 diabetes mellitus with diabetic peripheral angiopathy with gangrene; E11.40 Type 2 diabetes mellitus with diabetic neuropathy, unspecified; E11.22 Type 2 diabetes mellitus with diabetic chronic kidney disease; I12.9 Hypertensive chronic kidney disease with stage 1 through stage 4 chronic kidney disease, or unspecified chronic kidney disease; N18.4 Chronic kidney disease, stage 4 (severe); Z79.4 Long term (current) use of insulin; E11.69 Type 2 diabetes mellitus with other specified complication; M86.8X8 Other osteomyelitis, other site; Z87.01 Personal history of pneumonia (recurrent) | CPT/HCPCS: 11042 ==

== ENCOUNTER → 2017-05-19 | Outpatient (CLI) | payer MEDICARE | END | disposition home or self-care (01) | LOC: WOUND 10:00 | PROVIDERS: ATTEND Podiatrist Foot & Ankle Surgery | DX: E11.621 Type 2 diabetes mellitus with foot ulcer (principal); L97.521 Non-pressure chronic ulcer of other part of left foot limited to breakdown of skin; E11.52 Type 2 diabetes mellitus with diabetic peripheral angiopathy with gangrene; E11.40 Type 2 diabetes mellitus with diabetic neuropathy, unspecified; E11.22 Type 2 diabetes mellitus with diabetic chronic kidney disease; I12.9 Hypertensive chronic kidney disease with stage 1 through stage 4 chronic kidney disease, or unspecified chronic kidney disease; N18.4 Chronic kidney disease, stage 4 (severe); Z79.4 Long term (current) use of insulin; E11.69 Type 2 diabetes mellitus with other specified complication; M86.8X8 Other osteomyelitis, other site; Z87.891 Personal history of nicotine dependence | CPT/HCPCS: 15275; Q4172 ==

== ENCOUNTER → 2017-05-26 | Outpatient (CLI) | payer MEDICARE | END | disposition home or self-care (01) | LOC: WOUND 09:38 | PROVIDERS: ATTEND Internal Medicine Cardiovascular Disease | DX: E11.621 Type 2 diabetes mellitus with foot ulcer (principal); L97.521 Non-pressure chronic ulcer of other part of left foot limited to breakdown of skin; E11.52 Type 2 diabetes mellitus with diabetic peripheral angiopathy with gangrene; E11.40 Type 2 diabetes mellitus with diabetic neuropathy, unspecified; E11.22 Type 2 diabetes mellitus with diabetic chronic kidney disease; I12.9 Hypertensive chronic kidney disease with stage 1 through stage 4 chronic kidney disease, or unspecified chronic kidney disease; N18.4 Chronic kidney disease, stage 4 (severe); Z79.4 Long term (current) use of insulin; E11.69 Type 2 diabetes mellitus with other specified complication; M86.8X8 Other osteomyelitis, other site; Z87.891 Personal history of nicotine dependence | CPT/HCPCS: G0463; WOU0463 ==

== ENCOUNTER → 2017-06-02 | Outpatient (CLI) | payer MEDICARE ==
[~2017-06-02] MED LIST changes: -NAPR500T3 PO; +NAPR500T4 PO
== END | disposition home or self-care (01) ==
LOC: WOUND 09:44
PROVIDERS: ATTEND Podiatrist Foot & Ankle Surgery
DX: E11.621 Type 2 diabetes mellitus with foot ulcer (principal); L97.521 Non-pressure chronic ulcer of other part of left foot limited to breakdown of skin; E11.22 Type 2 diabetes mellitus with diabetic chronic kidney disease; I12.9 Hypertensive chronic kidney disease with stage 1 through stage 4 chronic kidney disease, or unspecified chronic kidney disease; N18.4 Chronic kidney disease, stage 4 (severe); E11.69 Type 2 diabetes mellitus with other specified complication; M86.8X8 Other osteomyelitis, other site; E11.40 Type 2 diabetes mellitus with diabetic neuropathy, unspecified; E11.52 Type 2 diabetes mellitus with diabetic peripheral angiopathy with gangrene; Z99.2 Dependence on renal dialysis; Z87.01 Personal history of pneumonia (recurrent); Z79.4 Long term (current) use of insulin
CPT/HCPCS: 11042

== ENCOUNTER → 2017-06-16 | Outpatient (CLI) | payer MEDICARE | END | disposition home or self-care (01) | LOC: WOUND 09:00 | PROVIDERS: ATTEND Podiatrist Foot & Ankle Surgery | DX: E11.621 Type 2 diabetes mellitus with foot ulcer (principal); L97.524 Non-pressure chronic ulcer of other part of left foot with necrosis of bone; E11.52 Type 2 diabetes mellitus with diabetic peripheral angiopathy with gangrene; E11.40 Type 2 diabetes mellitus with diabetic neuropathy, unspecified; E11.69 Type 2 diabetes mellitus with other specified complication; M86.68 Other chronic osteomyelitis, other site; E11.22 Type 2 diabetes mellitus with diabetic chronic kidney disease; I12.9 Hypertensive chronic kidney disease with stage 1 through stage 4 chronic kidney disease, or unspecified chronic kidney disease; N18.4 Chronic kidney disease, stage 4 (severe); Z99.2 Dependence on renal dialysis; Z87.891 Personal history of nicotine dependence; Z79.4 Long term (current) use of insulin | CPT/HCPCS: 11044; 87070; 87077; 87186; 87205 ==

== ENCOUNTER → 2017-06-23 | Outpatient (CLI) | payer MEDICARE | END | disposition home or self-care (01) | LOC: WOUND 09:57 | PROVIDERS: ATTEND Podiatrist Foot & Ankle Surgery | DX: E11.621 Type 2 diabetes mellitus with foot ulcer (principal); L97.524 Non-pressure chronic ulcer of other part of left foot with necrosis of bone; E11.52 Type 2 diabetes mellitus with diabetic peripheral angiopathy with gangrene; E11.69 Type 2 diabetes mellitus with other specified complication; M86.68 Other chronic osteomyelitis, other site; E11.22 Type 2 diabetes mellitus with diabetic chronic kidney disease; I12.9 Hypertensive chronic kidney disease with stage 1 through stage 4 chronic kidney disease, or unspecified chronic kidney disease; N18.4 Chronic kidney disease, stage 4 (severe); Z99.2 Dependence on renal dialysis; M19.072 Primary osteoarthritis, left ankle and foot; Z79.4 Long term (current) use of insulin; Z87.01 Personal history of pneumonia (recurrent) | CPT/HCPCS: 11044 ==

== ENCOUNTER 2017-06-27 16:28 | Inpatient (IN) | payer MEDICARE ==
[~2017-06-27] VITALS: Ht 165.1 cm; Wt 76.2 kg
[2017-06-27] MEDS ORDERED: VANCOMYCIN 1,400 MG in SODIUM CHLORIDE 0.9% 250 ML IV SCH (18:30)
[2017-06-27] MEDS ORDERED: PHARMACOKINETIC MONITORING MC PRN (18:30)
[2017-06-27] MEDS ORDERED: ACETAMINOPHEN 325 MG TABLET PO PRN (18:30)
[2017-06-27] MEDS ORDERED: VANCOMYCIN PER PHARMACY MC PRN (18:30)
[2017-06-27] MEDS ORDERED: POLYETHYLENE GLYCOL 17 GM PACKET PO PRN (18:30)
[2017-06-27] MEDS ORDERED: PHARMACOKINETIC CONSULTATION MC ONE (18:30)
[2017-06-27] MEDS ORDERED: BISACODYL 10 MG SUPP PR PRN (18:30)
[2017-06-27] MEDS ORDERED: MEROPENEM 1 GM in SODIUM CHLORIDE 0.9% 100 ML IV SCH (18:30)
[2017-06-27] MEDS ORDERED: ONDANSETRON 2MG/ML, 2ML IVPush PRN (18:30)
[2017-06-27 18:35] LABS: HEMATOCRIT 37.3 % (39.2-51.8); HEMOGLOBIN 12.5 g/dL (13.7-18.0); WHITE BLOOD COUNT 6.7 x10^3/uL (3.4-10)
[2017-06-27 18:40] LABS: ASPARTATE AMINO TRANSFERASE 12 U/L (15-37); BLOOD UREA NITROGEN 21 mg/dL (7-18)
[2017-06-27 19:41] VITALS: BP 169/84
[2017-06-27] MEDS: OXYcodone IR 5MG TABLET PO PRN (20:29)
[2017-06-27] MEDS: MEROPENEM 1 GM in SODIUM CHLORIDE 0.9% 50 ML IV SCH (20:30)
[2017-06-27] MEDS: INSULIN ASPART 100 UNITS/ML, PEN SQ-INSULIN SCH (21:00)
[2017-06-27] MEDS: SODIUM CHLORIDE FLUSH 10ML SYR IVF SCH (21:22)
[2017-06-27] MEDS: INSULIN DETEMIR 100 UNITS/ML, PEN SQ-INSULIN SCH (21:50)
[2017-06-27] MEDS: HEPARIN 5,000 UNITS/ML, 1ML SQ SCH (21:51)
[2017-06-28 02:19] VITALS: BP 143/80
[2017-06-28] MEDS: MEROPENEM 1 GM in SODIUM CHLORIDE 0.9% 50 ML IV SCH ×2 (04:20→11:33)
[2017-06-28] MEDS: OXYcodone IR 5MG TABLET PO PRN (04:46)
[2017-06-28 05:06] LABS: HEMATOCRIT 36.8 % (39.2-51.8); HEMOGLOBIN 12.5 g/dL (13.7-18.0); WHITE BLOOD COUNT 6.2 x10^3/uL (3.4-10)
[2017-06-28 05:17] LABS: ASPARTATE AMINO TRANSFERASE 9 U/L (15-37); BLOOD UREA NITROGEN 23 mg/dL (7-18)
[2017-06-28] MEDS: HEPARIN 5,000 UNITS/ML, 1ML SQ SCH ×3 (06:17→19:49)
[2017-06-28] MEDS: INSULIN ASPART 100 UNITS/ML, PEN SQ-INSULIN SCH ×4 (07:00→21:30)
[2017-06-28] MEDS: AMLODIPINE 5 MG TABLET PO SCH (07:47)
[2017-06-28] MEDS: SENNA/DOCUSATE TABLET PO SCH (07:47)
[2017-06-28] MEDS: INSULIN DETEMIR 100 UNITS/ML, PEN SQ-INSULIN SCH ×2 (07:47→21:30)
[2017-06-28] MEDS: SODIUM CHLORIDE FLUSH 10ML SYR IVF SCH ×2 (07:47→21:30)
[2017-06-28 07:52] VITALS: BP 145/80
[2017-06-28] MEDS ORDERED: GADOBUTROL 7.5 MMOL/7.5 ML PFS ONE (08:00)
[2017-06-28 16:05] VITALS: BP 99/53
[2017-06-28 19:55] VITALS: BP 129/69
[2017-06-29 01:10] VITALS: BP 129/70
[2017-06-29] MEDS: HEPARIN 5,000 UNITS/ML, 1ML SQ SCH ×2 (01:37→17:52)
[2017-06-29] MEDS: INSULIN ASPART 100 UNITS/ML, PEN SQ-INSULIN SCH ×4 (07:00→22:37)
[2017-06-29 08:39] VITALS: BP 137/73
[2017-06-29] MEDS: INSULIN DETEMIR 100 UNITS/ML, PEN SQ-INSULIN SCH ×2 (09:00→22:38)
[2017-06-29] MEDS: SENNA/DOCUSATE TABLET PO SCH (09:00)
[2017-06-29] MEDS: AMLODIPINE 5 MG TABLET PO SCH (09:00)
[2017-06-29] MEDS: SODIUM CHLORIDE FLUSH 10ML SYR IVF SCH ×2 (09:00→21:00)
[2017-06-29] MEDS ORDERED: LIDOCAINE/PF 1%, 30ML ONE (13:06)
[2017-06-29] MEDS ORDERED: EPINEPHRINE 1 MG/ML, 1ML ONE (13:06)
[2017-06-29] MEDS ORDERED: BUPIVACAINE/PF 0.5% ONE (13:06)
[2017-06-29] MEDS ORDERED: MIDAZOLAM 1 MG/ML, 2ML ONE (13:16)
[2017-06-29] MEDS ORDERED: FENTANYL PF 100 MCG/2ML ONE (13:16)
[2017-06-29] MEDS ORDERED: ONDANSETRON 2MG/ML, 2ML IVPush PRN (14:00)
[2017-06-29] MEDS ORDERED: MIDAZOLAM 1 MG/ML, 2ML IV PRN (14:00)
[2017-06-29] MEDS ORDERED: ACETAMINOPHEN 325 MG TABLET PO PRN (14:00)
[2017-06-29] MEDS ORDERED: DIAZEPAM 5 MG/ML, 2ML IVPush PRN (14:00)
[2017-06-29] MEDS ORDERED: PROMETHAZINE 25 MG/ML, 1ML IV PRN (14:00)
[2017-06-29] MEDS ORDERED: hydrALAzine 20 MG/ML, 1ML IV PRN (14:00)
[2017-06-29] MEDS ORDERED: FENTANYL PF 100 MCG/2ML IV PRN (14:00)
[2017-06-29] MEDS ORDERED: ALBUTEROL/IPRATROPIUM 2.5MG/0.5MG, 3 ML NPPB PRN (14:00)
[2017-06-29] MEDS ORDERED: OXYcodone 5 MG/5 ML ORAL.SOL UDC PO PRN (14:00)
[2017-06-29] MEDS ORDERED: ONDANSETRON 2MG/ML, 2ML ONE (14:35)
[2017-06-29] MEDS ORDERED: CEFAZOLIN 1,000 MG ONE (14:35)
[2017-06-29] MEDS ORDERED: DEXAMETHASONE 4 MG/ML, 1ML ONE (14:35)
[2017-06-29] MEDS ORDERED: PROPOFOL 10 MG/ML, 20ML ONE (14:35)
[2017-06-29] MEDS ORDERED: OXYcodone 5 MG/5 ML ORAL.SOL UDC ONE (15:03)
[2017-06-29] MEDS ORDERED: ACETAMINOPHEN 650 MG/20.3 ML UDC ONE (15:03)
[2017-06-29] MEDS: LABETALOL 5MG/ML, 20ML IV PRN ×2 (15:04→15:36)
[2017-06-29] MEDS ORDERED: hydrALAzine 20 MG/ML, 1ML ONE (15:13)
[2017-06-29 16:00] VITALS: BP 147/78
[2017-06-29] MEDS ORDERED: OXYcodone/APAP 5/325MG TABLET PO PRN (17:00)
[2017-06-29] MEDS ORDERED: ONDANSETRON 2MG/ML, 2ML IV PRN (17:00)
[2017-06-29 18:38] VITALS: BP 139/77
[2017-06-29 23:42] VITALS: BP 114/59
[2017-06-30] MEDS: HEPARIN 5,000 UNITS/ML, 1ML SQ SCH ×3 (02:03→18:13)
[2017-06-30 03:57] VITALS: BP 111/51
[2017-06-30 07:33] VITALS: BP 142/75
[2017-06-30] MEDS: INSULIN ASPART 100 UNITS/ML, PEN SQ-INSULIN SCH ×4 (07:35→21:32)
[2017-06-30] MEDS: INSULIN DETEMIR 100 UNITS/ML, PEN SQ-INSULIN SCH ×2 (07:35→21:32)
[2017-06-30] MEDS: AMLODIPINE 5 MG TABLET PO SCH (07:35)
[2017-06-30] MEDS: SENNA/DOCUSATE TABLET PO SCH (07:36)
[2017-06-30] MEDS: SODIUM CHLORIDE FLUSH 10ML SYR IVF SCH ×2 (10:07→21:00)
[2017-06-30] MEDS ORDERED: PIPERACILLIN/TAZO/PMX 3.375GM 50 ML IV SCH (12:00)
[2017-06-30] MEDS ORDERED: FLU VACC QS2017-18 (36MOS+) UP/PF 0.5 ML IM-VACC ONE (12:30)
[2017-06-30] MEDS ORDERED: DIPHTHERIA-TETANUS ADULT 0.5ML IM-VACC ONE (12:30)
[2017-06-30] MEDS: DAPTOMYCIN 440 MG in SODIUM CHLORIDE 0.9% 100 ML IVPB SCH (13:50)
[2017-06-30 14:30] VITALS: BP 135/72
[2017-06-30] MEDS: PIPERACILLIN/TAZO/PMX 3.375GM 50 ML IV SCH ×2 (15:13→23:01)
[2017-06-30 20:11] VITALS: BP 108/52
[2017-07-01 01:27] VITALS: BP 124/61
[2017-07-01] MEDS: HEPARIN 5,000 UNITS/ML, 1ML SQ SCH ×3 (01:52→18:06)
[2017-07-01] MEDS: PIPERACILLIN/TAZO/PMX 3.375GM 50 ML IV SCH ×3 (06:23→23:32)
[2017-07-01] MEDS: INSULIN ASPART 100 UNITS/ML, PEN SQ-INSULIN SCH ×4 (06:23→21:53)
[2017-07-01 08:29] VITALS: BP 135/77
[2017-07-01] MEDS: AMLODIPINE 5 MG TABLET PO SCH (08:34)
[2017-07-01] MEDS: INSULIN DETEMIR 100 UNITS/ML, PEN SQ-INSULIN SCH ×2 (08:35→21:57)
[2017-07-01] MEDS: SENNA/DOCUSATE TABLET PO SCH (08:35)
[2017-07-01] MEDS: SODIUM CHLORIDE FLUSH 10ML SYR IVF SCH ×2 (09:41→21:52)
[2017-07-01 14:30] VITALS: BP 133/76
[2017-07-01] MEDS: DAPTOMYCIN 440 MG in SODIUM CHLORIDE 0.9% 100 ML IVPB SCH (15:06)
[2017-07-01] MEDS: SODIUM CHLORIDE 0.9% 1,000 ML IV SCH (19:00)
[2017-07-01 19:59] VITALS: BP 145/79
[2017-07-02] MEDS: HEPARIN 5,000 UNITS/ML, 1ML SQ SCH ×3 (02:20→18:01)
[2017-07-02] MEDS: OXYcodone IR 5MG TABLET PO PRN (02:25)
[2017-07-02 02:58] VITALS: BP 138/80
[2017-07-02 05:21] LABS: BLOOD UREA NITROGEN 14 mg/dL (7-18)
[2017-07-02 05:30] LABS: HEMATOCRIT 35.5 % (39.2-51.8); HEMOGLOBIN 12.3 g/dL (13.7-18.0); WHITE BLOOD COUNT 6.9 x10^3/uL (3.4-10)
[2017-07-02] MEDS: INSULIN ASPART 100 UNITS/ML, PEN SQ-INSULIN SCH ×4 (07:00→20:35)
[2017-07-02] MEDS: PIPERACILLIN/TAZO/PMX 3.375GM 50 ML IV SCH ×2 (07:46→18:01)
[2017-07-02 08:50] VITALS: BP 130/73
[2017-07-02] MEDS: INSULIN DETEMIR 100 UNITS/ML, PEN SQ-INSULIN SCH ×2 (09:00→20:53)
[2017-07-02] MEDS: SENNA/DOCUSATE TABLET PO SCH (09:00)
[2017-07-02] MEDS: SODIUM CHLORIDE FLUSH 10ML SYR IVF SCH ×2 (09:14→20:52)
[2017-07-02] MEDS: AMLODIPINE 5 MG TABLET PO SCH (09:14)
[2017-07-02 13:19] VITALS: BP 117/62
[2017-07-02] MEDS: DAPTOMYCIN 440 MG in SODIUM CHLORIDE 0.9% 100 ML IVPB SCH (16:10)
[2017-07-02] MEDS: SODIUM CHLORIDE 0.9% 1,000 ML IV SCH (16:17)
[2017-07-02 19:02] VITALS: BP 126/73
[2017-07-03] MEDS: SODIUM CHLORIDE 0.9% 1,000 ML IV SCH ×2 (01:01→16:51)
[2017-07-03] MEDS: PIPERACILLIN/TAZO/PMX 3.375GM 50 ML IV SCH ×3 (01:01→17:39)
[2017-07-03] MEDS: HEPARIN 5,000 UNITS/ML, 1ML SQ SCH ×3 (02:13→17:39)
[2017-07-03 02:15] VITALS: BP 134/77
[2017-07-03] MEDS: INSULIN ASPART 100 UNITS/ML, PEN SQ-INSULIN SCH ×4 (07:09→20:39)
[2017-07-03 08:47] VITALS: BP 144/83
[2017-07-03] MEDS: SENNA/DOCUSATE TABLET PO SCH (09:38)
[2017-07-03] MEDS: AMLODIPINE 5 MG TABLET PO SCH (09:38)
[2017-07-03] MEDS: SODIUM CHLORIDE FLUSH 10ML SYR IVF SCH ×2 (09:39→20:40)
[2017-07-03] MEDS: INSULIN DETEMIR 100 UNITS/ML, PEN SQ-INSULIN SCH ×2 (09:39→20:40)
[2017-07-03 13:41] VITALS: BP 118/64
[2017-07-03] MEDS: DAPTOMYCIN 440 MG in SODIUM CHLORIDE 0.9% 100 ML IVPB SCH (16:51)
[2017-07-03 19:50] VITALS: BP 143/76
[2017-07-04] MEDS: PIPERACILLIN/TAZO/PMX 3.375GM 50 ML IV SCH ×2 (01:04→09:44)
[2017-07-04] MEDS: OXYcodone IR 5MG TABLET PO PRN (01:04)
[2017-07-04] MEDS: HEPARIN 5,000 UNITS/ML, 1ML SQ SCH ×3 (01:04→18:28)
[2017-07-04] MEDS: SODIUM CHLORIDE 0.9% 1,000 ML IV SCH (01:05)
[2017-07-04 02:32] VITALS: BP 125/62
[2017-07-04 05:08] LABS: BLOOD UREA NITROGEN 20 mg/dL (7-18); C-REACTIVE PROTEIN, QUANT 0.23 mg/dL (0.02-0.49); HEMATOCRIT 34.5 % (39.2-51.8); HEMOGLOBIN 11.7 g/dL (13.7-18.0); WHITE BLOOD COUNT 6.7 x10^3/uL (3.4-10)
[2017-07-04 05:11] LABS: ASPARTATE AMINO TRANSFERASE 13 U/L (15-37)
[2017-07-04] MEDS: INSULIN ASPART 100 UNITS/ML, PEN SQ-INSULIN SCH ×4 (07:00→20:35)
[2017-07-04 07:45] VITALS: BP 146/82
[2017-07-04] MEDS: SENNA/DOCUSATE TABLET PO SCH (09:00)
[2017-07-04] MEDS: AMLODIPINE 5 MG TABLET PO SCH (09:44)
[2017-07-04] MEDS: INSULIN DETEMIR 100 UNITS/ML, PEN SQ-INSULIN SCH ×2 (09:45→20:37)
[2017-07-04] MEDS: SODIUM CHLORIDE FLUSH 10ML SYR IVF SCH ×2 (09:45→20:37)
[2017-07-04] MEDS: ERTAPENEM 1 GM in SODIUM CHLORIDE 0.9% 50 ML IV SCH (13:12)
[2017-07-04 16:10] VITALS: BP 128/74
[2017-07-04] MEDS: DAPTOMYCIN 440 MG in SODIUM CHLORIDE 0.9% 100 ML IVPB SCH (17:08)
[2017-07-04 19:45] VITALS: BP 131/69
[2017-07-04] MEDS: CIPROFLOXACIN 500 MG TABLET PO SCH (20:36)
[2017-07-05] MEDS: OXYcodone IR 5MG TABLET PO PRN (02:06)
[2017-07-05] MEDS: HEPARIN 5,000 UNITS/ML, 1ML SQ SCH ×3 (02:06→17:28)
[2017-07-05] MEDS: SODIUM CHLORIDE 0.9% 1,000 ML IV SCH ×2 (02:07→16:16)
[2017-07-05 02:43] VITALS: BP 117/71
[2017-07-05] MEDS: INSULIN ASPART 100 UNITS/ML, PEN SQ-INSULIN SCH ×4 (06:27→20:59)
[2017-07-05 08:15] VITALS: BP 137/59
[2017-07-05] MEDS: AMLODIPINE 5 MG TABLET PO SCH (09:35)
[2017-07-05] MEDS: SENNA/DOCUSATE TABLET PO SCH (09:36)
[2017-07-05] MEDS: CIPROFLOXACIN 500 MG TABLET PO SCH ×2 (09:36→21:02)
[2017-07-05] MEDS: INSULIN DETEMIR 100 UNITS/ML, PEN SQ-INSULIN SCH ×2 (09:38→20:58)
[2017-07-05] MEDS: SODIUM CHLORIDE FLUSH 10ML SYR IVF SCH ×2 (09:39→20:59)
[2017-07-05] MEDS: ERTAPENEM 1 GM in SODIUM CHLORIDE 0.9% 50 ML IV SCH (13:29)
[2017-07-05 15:11] VITALS: BP 113/63
[2017-07-05] MEDS: DAPTOMYCIN 440 MG in SODIUM CHLORIDE 0.9% 100 ML IVPB SCH (17:28)
[2017-07-05 19:24] VITALS: BP 150/83
[2017-07-06] MEDS: SODIUM CHLORIDE 0.9% 1,000 ML IV SCH ×2 (01:32→10:25)
[2017-07-06] MEDS: HEPARIN 5,000 UNITS/ML, 1ML SQ SCH ×2 (01:32→09:27)
[2017-07-06 02:00] VITALS: BP 124/67
[2017-07-06] MEDS: INSULIN ASPART 100 UNITS/ML, PEN SQ-INSULIN SCH ×2 (06:26→11:00)
[2017-07-06 08:00] VITALS: BP 141/71
[2017-07-06] MEDS: SENNA/DOCUSATE TABLET PO SCH (09:20)
[2017-07-06] MEDS: CIPROFLOXACIN 500 MG TABLET PO SCH (09:20)
[2017-07-06] MEDS: AMLODIPINE 5 MG TABLET PO SCH (09:20)
[2017-07-06] MEDS: SODIUM CHLORIDE FLUSH 10ML SYR IVF SCH (09:22)
[2017-07-06] MEDS: INSULIN DETEMIR 100 UNITS/ML, PEN SQ-INSULIN SCH (09:22)
[2017-07-06] MEDS: ERTAPENEM 1 GM in SODIUM CHLORIDE 0.9% 50 ML IV SCH (13:20)
[2017-07-06] MEDS ORDERED: OXYC1TAB7 PO (14:09)
[2017-07-06] MEDS ORDERED: CIPR500T87 PO (14:09)
[2017-07-06] MEDS ORDERED: ERTA1VIA IV (14:09)
[2017-07-06] MEDS ORDERED: DAPT500V6 IV (14:09)
[2017-07-06 14:30] VITALS: BP 128/75
== END 2017-07-06 16:00 | DRG 239 ==
LOC: 3NE 16:28 → EDSTATUS 06-29 13:00 → 4NOR 06-29 16:15
PROVIDERS: ADMIT Hospitalist; ATTEND Family Medicine
PROC: 0Y6N0Z8 Detachment at Left Foot, Complete 5th Ray, Open Approach (ICD-10-PCS; principal; 2017-06-29 13:00)
PROC: 3E0234Z Introduction of Serum, Toxoid and Vaccine into Muscle, Percutaneous Approach (ICD-10-PCS; 2017-06-30)
PROC: 02HV33Z Insertion of Infusion Device into Superior Vena Cava, Percutaneous Approach (ICD-10-PCS; 2017-07-04)
PROC: B548ZZA Ultrasonography of Superior Vena Cava, Guidance (ICD-10-PCS; 2017-07-04)
PROC: B5181ZA Fluoroscopy of Superior Vena Cava using Low Osmolar Contrast, Guidance (ICD-10-PCS; 2017-07-04)
DX: E11.52 Type 2 diabetes mellitus with diabetic peripheral angiopathy with gangrene (principal); N17.0 Acute kidney failure with tubular necrosis; I96 Gangrene, not elsewhere classified; E11.22 Type 2 diabetes mellitus with diabetic chronic kidney disease; N18.3 Chronic kidney disease, stage 3 (moderate); E11.42 Type 2 diabetes mellitus with diabetic polyneuropathy; L03.116 Cellulitis of left lower limb; M86.8X7 Other osteomyelitis, ankle and foot; E11.69 Type 2 diabetes mellitus with other specified complication; E11.621 Type 2 diabetes mellitus with foot ulcer; I12.9 Hypertensive chronic kidney disease with stage 1 through stage 4 chronic kidney disease, or unspecified chronic kidney disease; E11.65 Type 2 diabetes mellitus with hyperglycemia; L97.529 Non-pressure chronic ulcer of other part of left foot with unspecified severity; B96.5 Pseudomonas (aeruginosa) (mallei) (pseudomallei) as the cause of diseases classified elsewhere; B95.62 Methicillin resistant Staphylococcus aureus infection as the cause of diseases classified elsewhere; B95.2 Enterococcus as the cause of diseases classified elsewhere; Z87.891 Personal history of nicotine dependence; Z23 Encounter for immunization; Z79.4 Long term (current) use of insulin
CPT/HCPCS: 36415; 36569; 76937; 77001; 80048; 80053; 82040; 82550; 82962; 83036; 85025; 85651; 86140; 86141; 87070; 87075; 87205; 88305; 88311; 90686; 90714; A9585; J0171; J0690; J0878; J1100; J1335; J1644; J1815; J2185; J2250; J2405; J2543; J2704; J3010; J3370; J3490; C1751; J0360; J7030; J7050

== ENCOUNTER 2017-11-01 22:05 | Inpatient (IN) | payer MEDICARE ==
[~2017-11-01] VITALS: Ht 182.9 cm; Wt 71.3 kg
[~2017-11-01 22:05] MED LIST changes: +CIPR500T87 PO; +DAPT500V6 IV; +ERTA1VIA IV; +NAPR-685 PO; -NAPR500T4 PO; +OXYC1TAB7 PO
[2017-11-01] MEDS ORDERED: PIPERACILLIN/TAZO/PMX 3.375GM 50 ML ONE (22:52)
[2017-11-01] MEDS ORDERED: PIPERACILLIN/TAZO/PMX 3.375GM 50 ML IVPB ONE (23:00)
[2017-11-01] MEDS ORDERED: SODIUM CHLORIDE 0.9% 1,000ML IVBOLUS ONE (23:00)
[2017-11-01] MEDS ORDERED: VANCOMYCIN PER PHARMACY MC ONE (23:00)
[2017-11-01] MEDS ORDERED: VANCOMYCIN 1,500 MG in SODIUM CHLORIDE 0.9% 250 ML IV ONE (23:00)
[2017-11-01 23:05] LABS: BASOPHILS # (AUTO) 0.01 x10^3/uL (0-0.1); BASOPHILS % (AUTO) 0 % (0-1); EOSINOPHILS % (AUTO) 0 % (1-7); LYMPHOCYTES # (AUTO) 0.68 x10^3/uL (1-3.4); LYMPHOCYTES % (AUTO) 5 % (22-44); MD NO; MEAN CORPUSCULAR HEMOGLOBIN 29.5 pg (27.5-34.5); MEAN CORPUSCULAR HGB CONC 34.3 g/dL (33.2-36.2); MEAN CORPUSCULAR VOLUME 86.2 fL (81-97); MONOCYTES % (AUTO) 5 % (2-9); NEUTROPHILS # (AUTO) 13.64 x10^3/uL (1.8-6.8); NEUTROPHILS % (AUTO) 90 % (42-75); PLATELET COUNT 262 x10^3/uL (130-400); RED BLOOD COUNT 3.71 x10^6/uL (4.38-5.82); RED CELL DISTRIBUTION WIDTH 13.5 % (9.4-14.8)
[2017-11-01 23:17] LABS: ANION GAP 9 mmol/L (5-15); CALCIUM 7.6 mg/dL (8.5-10.1); CHLORIDE 101 mmol/L (98-107); CREATININE 2.29 mg/dL (0.7-1.3)
[2017-11-01 23:18] LABS: ALANINE AMINOTRANSFERASE 12 U/L (12-78)
[2017-11-01 23:19] LABS: ALKALINE PHOSPHATASE 82 U/L (45-117); BILIRUBIN,TOTAL 0.3 mg/dL (0.2-1.0); TOTAL PROTEIN 7.8 g/dL (6.4-8.2)
[2017-11-01] MEDS ORDERED: SODIUM CHLORIDE 0.9% 1,000 ML IV ONE (23:52)
[2017-11-02] MEDS ORDERED: SODIUM CHLORIDE 0.9% 1,000ML IVBOLUS ONE
[2017-11-02] MEDS ORDERED: ACETAMINOPHEN 325 MG TABLET PO PRN
[2017-11-02] MEDS ORDERED: ONDANSETRON 2MG/ML, 2ML IVPush PRN
[2017-11-02] MEDS ORDERED: ONDANSETRON ODT 4 MG PO PRN
[2017-11-02] MEDS ORDERED: ENALAPRILAT 1.25 MG/ML, 2ML IVPush PRN
[2017-11-02] MEDS ORDERED: TEMAZEPAM 15 MG CAPSULE PO PRN
[2017-11-02] MEDS ORDERED: MORPHINE SULFATE 4 MG/ML, 1ML IVPush PRN
[2017-11-02] MEDS ORDERED: INSULIN GLARGINE 100 UNITS/ML, PEN SQ-INSULIN SCH (00:30)
[2017-11-02] MEDS: INSULIN REGULAR 100 UNITS/ML, 3ML VIAL SQ-INSULIN SCH ×3 (00:30→11:55)
[2017-11-02] MEDS ORDERED: PHARMACOKINETIC MONITORING MC PRN (01:00)
[2017-11-02] MEDS ORDERED: PHARMACY MAY ADJ FOR RENAL FX MC PRN (01:00)
[2017-11-02] MEDS ORDERED: VANCOMYCIN PER PHARMACY MC PRN (01:00)
[2017-11-02 01:30] VITALS: BP 136/71
[2017-11-02] MEDS: INSULIN LISPRO 100 UNITS/ML, PEN SQ-INSULIN SCH ×5 (01:30→21:19)
[2017-11-02] MEDS: HEPARIN 5,000 UNITS/ML, 1ML SQ SCH ×2 (01:35→08:35)
[2017-11-02] MEDS: PIPERACILLIN/TAZO 3.375 GM in DEXTROSE 5% 50 ML IVPB SCH ×4 (05:12→23:11)
[2017-11-02 08:00] VITALS: BP 125/75
[2017-11-02 09:33] LABS: BASOPHILS # (AUTO) 0.01 x10^3/uL (0-0.1); BASOPHILS % (AUTO) 0 % (0-1); EOSINOPHILS % (AUTO) 0 % (1-7); LYMPHOCYTES # (AUTO) 1.36 x10^3/uL (1-3.4); LYMPHOCYTES % (AUTO) 11 % (22-44); MD NO; MEAN CORPUSCULAR HEMOGLOBIN 29.1 pg (27.5-34.5); MEAN CORPUSCULAR HGB CONC 33.5 g/dL (33.2-36.2); MEAN CORPUSCULAR VOLUME 86.8 fL (81-97); MEAN PLATELET VOLUME 9.4 fL (7.4-10.4); MONOCYTES # (AUTO) 0.81 x10^3/uL (0.2-0.8); MONOCYTES % (AUTO) 7 % (2-9); NEUTROPHILS # (AUTO) 10.17 x10^3/uL (1.8-6.8); NEUTROPHILS % (AUTO) 82 % (42-75); PLATELET COUNT 225 x10^3/uL (130-400); RED BLOOD COUNT 3.26 x10^6/uL (4.38-5.82); RED CELL DISTRIBUTION WIDTH 13.7 % (9.4-14.8)
[2017-11-02 09:44] LABS: ANION GAP 7 mmol/L (5-15); CALCIUM 7.1 mg/dL (8.5-10.1); CHLORIDE 112 mmol/L (98-107); CREATININE 1.95 mg/dL (0.7-1.3)
[2017-11-02 13:32] VITALS: BP 125/86
[2017-11-02 14:35] LABS: HCT (SEDRATE) 28.7 % (39.2-51.8)
[2017-11-02 14:39] LABS: INTERNATIONAL NORMALIZED RATIO 1.08 (0.93-1.1); PROTHROMBIN TIME 11.2 Seconds (9.6-11.5)
[2017-11-02 15:03] LABS: HEMOGLOBIN A1C 7.4 % (4.2-6.3)
[2017-11-02] MEDS ORDERED: HEPARIN 5,000 UNITS/ML, 1ML SQ SCH (16:00)
[2017-11-02 18:59] VITALS: BP 114/59
[2017-11-02] MEDS: INSULIN GLARGINE 100 UNITS/ML, PEN SQ-INSULIN SCH (21:18)
[2017-11-03] MEDS ORDERED: INSULIN GLARGINE 100 UNITS/ML, PEN SQ-INSULIN SCH (00:30)
[2017-11-03 01:14] VITALS: BP 130/55
[2017-11-03] MEDS: PIPERACILLIN/TAZO 3.375 GM in DEXTROSE 5% 50 ML IVPB SCH ×2 (04:56→12:04)
[2017-11-03] MEDS: INSULIN LISPRO 100 UNITS/ML, PEN SQ-INSULIN SCH ×4 (07:00→20:05)
[2017-11-03 07:32] VITALS: BP 145/75
[2017-11-03] MEDS ORDERED: VANCOMYCIN 1,500 MG in SODIUM CHLORIDE 0.9% 250 ML IV SCH (09:00)
[2017-11-03] MEDS: INSULIN GLARGINE 100 UNITS/ML, PEN SQ-INSULIN SCH ×2 (09:26→17:07)
[2017-11-03 12:09] LABS: BASOPHILS # (AUTO) 0.02 x10^3/uL (0-0.1); BASOPHILS % (AUTO) 0 % (0-1); EOSINOPHILS # (AUTO) 0.26 x10^3/uL (0-0.4); EOSINOPHILS % (AUTO) 4 % (1-7); LYMPHOCYTES # (AUTO) 1.44 x10^3/uL (1-3.4); LYMPHOCYTES % (AUTO) 24 % (22-44); MD NO; MEAN CORPUSCULAR HEMOGLOBIN 29.5 pg (27.5-34.5); MEAN CORPUSCULAR HGB CONC 34.1 g/dL (33.2-36.2); MEAN CORPUSCULAR VOLUME 86.5 fL (81-97); MEAN PLATELET VOLUME 9.7 fL (7.4-10.4); MONOCYTES # (AUTO) 0.96 x10^3/uL (0.2-0.8); MONOCYTES % (AUTO) 16 % (2-9); NEUTROPHILS # (AUTO) 3.27 x10^3/uL (1.8-6.8); NEUTROPHILS % (AUTO) 55 % (42-75); PLATELET COUNT 244 x10^3/uL (130-400); RED BLOOD COUNT 3.47 x10^6/uL (4.38-5.82); RED CELL DISTRIBUTION WIDTH 13.7 % (9.4-14.8)
[2017-11-03 12:43] LABS: ANION GAP 7 mmol/L (5-15); CALCIUM 7.7 mg/dL (8.5-10.1); CHLORIDE 112 mmol/L (98-107); CREATININE 1.52 mg/dL (0.7-1.3)
[2017-11-03 14:06] VITALS: BP 152/78
[2017-11-03] MEDS: DAPTOMYCIN 450 MG in SODIUM CHLORIDE 0.9% 100 ML IV SCH ×2 (16:00→17:23)
[2017-11-03] MEDS: PIPERACILLIN/TAZO/PMX 4.5GM 100 ML IV SCH (17:54)
[2017-11-03] MEDS: D5%-0.45% NACL 1,000 ML IV SCH ×2 (18:24→19:03)
[2017-11-03 20:01] VITALS: BP 151/75
[2017-11-04 02:13] VITALS: BP 168/81
[2017-11-04] MEDS: PIPERACILLIN/TAZO/PMX 4.5GM 100 ML IV SCH ×3 (02:14→18:19)
[2017-11-04] MEDS: D5%-0.45% NACL 1,000 ML IV SCH (05:19)
[2017-11-04 05:51] LABS: BASOPHILS # (AUTO) 0.03 x10^3/uL (0-0.1); BASOPHILS % (AUTO) 1 % (0-1); EOSINOPHILS # (AUTO) 0.35 x10^3/uL (0-0.4); EOSINOPHILS % (AUTO) 6 % (1-7); LYMPHOCYTES # (AUTO) 1.55 x10^3/uL (1-3.4); LYMPHOCYTES % (AUTO) 28 % (22-44); MD NO; MEAN CORPUSCULAR HEMOGLOBIN 29.3 pg (27.5-34.5); MEAN CORPUSCULAR VOLUME 86.3 fL (81-97); MEAN PLATELET VOLUME 9.7 fL (7.4-10.4); MONOCYTES # (AUTO) 0.87 x10^3/uL (0.2-0.8); MONOCYTES % (AUTO) 16 % (2-9); NEUTROPHILS # (AUTO) 2.76 x10^3/uL (1.8-6.8); NEUTROPHILS % (AUTO) 50 % (42-75); PLATELET COUNT 232 x10^3/uL (130-400); RED BLOOD COUNT 3.48 x10^6/uL (4.38-5.82); RED CELL DISTRIBUTION WIDTH 13.6 % (9.4-14.8)
[2017-11-04 06:01] LABS: ANION GAP 8 mmol/L (5-15); CALCIUM 8.1 mg/dL (8.5-10.1); CHLORIDE 110 mmol/L (98-107)
[2017-11-04] MEDS ORDERED: NEOSPORIN OINT, 15GM ONE (06:38)
[2017-11-04] MEDS ORDERED: BUPIVACAINE/PF 0.5% ONE (06:39)
[2017-11-04] MEDS ORDERED: MIDAZOLAM 1 MG/ML, 2ML ONE (06:42)
[2017-11-04] MEDS ORDERED: FENTANYL PF 100 MCG/2ML ONE (06:42)
[2017-11-04] MEDS: INSULIN LISPRO 100 UNITS/ML, PEN SQ-INSULIN SCH ×4 (07:00→21:00)
[2017-11-04] MEDS ORDERED: ONDANSETRON 2MG/ML, 2ML ONE (07:10)
[2017-11-04] MEDS ORDERED: PROPOFOL 10 MG/ML, 20ML ONE (07:10)
[2017-11-04] MEDS ORDERED: LIDOCAINE-MPF 2% ,5ML ONE (07:10)
[2017-11-04 07:11] VITALS: BP 169/80
[2017-11-04] MEDS: INSULIN GLARGINE 100 UNITS/ML, PEN SQ-INSULIN SCH ×3 (07:27→20:59)
[2017-11-04] MEDS ORDERED: ALBUTEROL SULFATE 2.5 MG/3 ML NPPB PRN (07:30)
[2017-11-04] MEDS ORDERED: PROMETHAZINE 25 MG/ML, 1ML IV PRN (07:30)
[2017-11-04] MEDS ORDERED: PROMETHAZINE 12.5 MG SUPP PR PRN (07:30)
[2017-11-04] MEDS ORDERED: HYDROmorphone 1 MG/ML, 1ML IV PRN (07:30)
[2017-11-04] MEDS ORDERED: FENTANYL PF 100 MCG/2ML IV PRN (07:30)
[2017-11-04] MEDS ORDERED: MEPERIDINE/PF 25MG/0.5ML IVPush PRN (07:30)
[2017-11-04] MEDS ORDERED: LORazepam 2 MG/ML, 1ML IVPush PRN (07:30)
[2017-11-04] MEDS ORDERED: ACETAMINOPHEN 325 MG TABLET PO PRN (07:30)
[2017-11-04] MEDS ORDERED: hydrALAzine 20 MG/ML, 1ML IV PRN (07:30)
[2017-11-04] MEDS ORDERED: LABETALOL 5MG/ML, 20ML IV PRN (07:30)
[2017-11-04] MEDS ORDERED: OXYcodone 5 MG/5 ML ORAL.SOL UDC PO PRN (07:30)
[2017-11-04 14:05] VITALS: BP 140/97
[2017-11-04] MEDS: HEPARIN 5,000 UNITS/ML, 1ML SQ SCH (17:00)
[2017-11-04] MEDS: DAPTOMYCIN 450 MG in SODIUM CHLORIDE 0.9% 100 ML IV SCH (17:24)
[2017-11-04 19:08] VITALS: BP 118/66
[2017-11-05 00:48] VITALS: BP 134/78
[2017-11-05] MEDS: HEPARIN 5,000 UNITS/ML, 1ML SQ SCH ×3 (02:45→19:13)
[2017-11-05] MEDS: PIPERACILLIN/TAZO/PMX 4.5GM 100 ML IV SCH ×3 (02:45→19:13)
[2017-11-05 05:27] LABS: ANION GAP 9 mmol/L (5-15); CALCIUM 8.1 mg/dL (8.5-10.1); CHLORIDE 110 mmol/L (98-107)
[2017-11-05 05:29] LABS: CREATININE 1.47 mg/dL (0.7-1.3)
[2017-11-05 05:32] LABS: BASOPHILS # (AUTO) 0.03 x10^3/uL (0-0.1); BASOPHILS % (AUTO) 0 % (0-1); EOSINOPHILS # (AUTO) 0.38 x10^3/uL (0-0.4); EOSINOPHILS % (AUTO) 5 % (1-7); LYMPHOCYTES # (AUTO) 1.91 x10^3/uL (1-3.4); LYMPHOCYTES % (AUTO) 26 % (22-44); MD NO; MEAN CORPUSCULAR HEMOGLOBIN 28.6 pg (27.5-34.5); MEAN CORPUSCULAR HGB CONC 33.3 g/dL (33.2-36.2); MEAN CORPUSCULAR VOLUME 85.9 fL (81-97); MEAN PLATELET VOLUME 10.2 fL (7.4-10.4); MONOCYTES # (AUTO) 0.75 x10^3/uL (0.2-0.8); MONOCYTES % (AUTO) 10 % (2-9); NEUTROPHILS % (AUTO) 59 % (42-75); PLATELET COUNT 298 x10^3/uL (130-400); RED BLOOD COUNT 3.59 x10^6/uL (4.38-5.82); RED CELL DISTRIBUTION WIDTH 14.1 % (9.4-14.8)
[2017-11-05] MEDS: INSULIN LISPRO 100 UNITS/ML, PEN SQ-INSULIN SCH ×4 (07:00→22:19)
[2017-11-05 08:24] VITALS: BP 153/99
[2017-11-05] MEDS: INSULIN GLARGINE 100 UNITS/ML, PEN SQ-INSULIN SCH ×2 (09:00→22:18)
[2017-11-05] MEDS: LISINOPRIL 5 MG TABLET PO SCH (11:25)
[2017-11-05 13:25] VITALS: BP 129/69
[2017-11-05] MEDS: DAPTOMYCIN 450 MG in SODIUM CHLORIDE 0.9% 100 ML IV SCH (18:25)
[2017-11-05 18:40] VITALS: BP 141/78
[2017-11-06 00:44] VITALS: BP 120/70
[2017-11-06] MEDS: PIPERACILLIN/TAZO/PMX 4.5GM 100 ML IV SCH ×3 (03:45→20:30)
[2017-11-06] MEDS: HEPARIN 5,000 UNITS/ML, 1ML SQ SCH ×3 (03:46→20:40)
[2017-11-06 05:29] LABS: ABSOLUTE RETICS # 0.024 x10^6/uL (0.5-1.5); BASOPHILS # (AUTO) 0.04 x10^3/uL (0-0.1); BASOPHILS % (AUTO) 1 % (0-1); EOSINOPHILS % (AUTO) 6 % (1-7); LYMPHOCYTES # (AUTO) 2.01 x10^3/uL (1-3.4); LYMPHOCYTES % (AUTO) 24 % (22-44); MD NO; MEAN CORPUSCULAR HEMOGLOBIN 28.4 pg (27.5-34.5); MEAN CORPUSCULAR HGB CONC 33.1 g/dL (33.2-36.2); MEAN CORPUSCULAR VOLUME 85.8 fL (81-97); MEAN PLATELET VOLUME 9.5 fL (7.4-10.4); MONOCYTES # (AUTO) 0.76 x10^3/uL (0.2-0.8); MONOCYTES % (AUTO) 9 % (2-9); NEUTROPHILS # (AUTO) 5.13 x10^3/uL (1.8-6.8); NEUTROPHILS % (AUTO) 61 % (42-75); PLATELET COUNT 263 x10^3/uL (130-400); RED BLOOD COUNT 3.36 x10^6/uL (4.38-5.82); RED BLOOD COUNT 3.37 x10^6/uL (4.38-5.82); RED CELL DISTRIBUTION WIDTH 13.8 % (9.4-14.8); RETICULOCYTE COUNT % 0.72 % (0.5-1.5)
[2017-11-06 06:15] LABS: % IRON SATURATION 31 % (20-55); ANION GAP 8 mmol/L (5-15); CALCIUM 7.8 mg/dL (8.5-10.1); CHLORIDE 110 mmol/L (98-107); CREATININE 1.46 mg/dL (0.7-1.3); IRON LEVEL 48 mcg/dL (65-175); TOTAL IRON BINDING CAPACITY 157 mcg/dL (250-450)
[2017-11-06 06:50] VITALS: BP 142/80
[2017-11-06] MEDS: INSULIN LISPRO 100 UNITS/ML, PEN SQ-INSULIN SCH ×4 (07:00→20:40)
[2017-11-06] MEDS: INSULIN GLARGINE 100 UNITS/ML, PEN SQ-INSULIN SCH ×2 (09:00→20:42)
[2017-11-06] MEDS: LISINOPRIL 5 MG TABLET PO SCH (11:53)
[2017-11-06 13:08] VITALS: BP 130/60
[2017-11-06] MEDS: DAPTOMYCIN 450 MG in SODIUM CHLORIDE 0.9% 100 ML IV SCH (17:39)
[2017-11-06 19:07] VITALS: BP 150/82
[2017-11-07 01:12] VITALS: BP 146/78
[2017-11-07] MEDS: PIPERACILLIN/TAZO/PMX 4.5GM 100 ML IV SCH ×3 (03:55→20:35)
[2017-11-07] MEDS: HEPARIN 5,000 UNITS/ML, 1ML SQ SCH ×3 (03:55→20:43)
[2017-11-07 05:27] LABS: BASOPHILS # (AUTO) 0.04 x10^3/uL (0-0.1); BASOPHILS % (AUTO) 1 % (0-1); EOSINOPHILS # (AUTO) 0.48 x10^3/uL (0-0.4); EOSINOPHILS % (AUTO) 5 % (1-7); LYMPHOCYTES # (AUTO) 2.22 x10^3/uL (1-3.4); LYMPHOCYTES % (AUTO) 24 % (22-44); MD NO; MEAN CORPUSCULAR HEMOGLOBIN 28.9 pg (27.5-34.5); MEAN CORPUSCULAR HGB CONC 33.5 g/dL (33.2-36.2); MEAN CORPUSCULAR VOLUME 86.5 fL (81-97); MEAN PLATELET VOLUME 9.9 fL (7.4-10.4); MONOCYTES # (AUTO) 0.67 x10^3/uL (0.2-0.8); MONOCYTES % (AUTO) 7 % (2-9); NEUTROPHILS # (AUTO) 5.81 x10^3/uL (1.8-6.8); NEUTROPHILS % (AUTO) 63 % (42-75); PLATELET COUNT 315 x10^3/uL (130-400); RED BLOOD COUNT 3.54 x10^6/uL (4.38-5.82); RED CELL DISTRIBUTION WIDTH 14.1 % (9.4-14.8)
[2017-11-07 05:41] LABS: ALBUMIN 2.5 g/dL (3.4-5.0); ANION GAP 8 mmol/L (5-15); CALCIUM 8.2 mg/dL (8.5-10.1); CHLORIDE 110 mmol/L (98-107)
[2017-11-07 05:53] LABS: ALANINE AMINOTRANSFERASE 17 U/L (12-78); ALKALINE PHOSPHATASE 66 U/L (45-117); BILIRUBIN,TOTAL 0.3 mg/dL (0.2-1.0); CREATINE KINASE, TOTAL 41 U/L (39-308); CREATININE 1.36 mg/dL (0.7-1.3); TOTAL PROTEIN 7.3 g/dL (6.4-8.2)
[2017-11-07 05:59] LABS: HCT (SEDRATE) 30.6 % (39.2-51.8)
[2017-11-07 06:45] VITALS: BP 153/88
[2017-11-07] MEDS: INSULIN LISPRO 100 UNITS/ML, PEN SQ-INSULIN SCH ×4 (07:00→20:35)
[2017-11-07] MEDS: LISINOPRIL 5 MG TABLET PO SCH (07:52)
[2017-11-07] MEDS: INSULIN GLARGINE 100 UNITS/ML, PEN SQ-INSULIN SCH (10:11)
[2017-11-07 12:17] VITALS: BP 155/78
[2017-11-07] MEDS: DAPTOMYCIN 450 MG in SODIUM CHLORIDE 0.9% 100 ML IV SCH (17:28)
[2017-11-07 19:54] VITALS: BP 177/92
[2017-11-08 01:49] VITALS: BP 141/93
[2017-11-08] MEDS: PIPERACILLIN/TAZO/PMX 4.5GM 100 ML IV SCH (04:43)
[2017-11-08] MEDS: HEPARIN 5,000 UNITS/ML, 1ML SQ SCH ×3 (04:43→19:38)
[2017-11-08 06:40] VITALS: BP 154/86
[2017-11-08] MEDS: INSULIN LISPRO 100 UNITS/ML, PEN SQ-INSULIN SCH ×4 (07:00→21:12)
[2017-11-08] MEDS: LISINOPRIL 5 MG TABLET PO SCH (07:49)
[2017-11-08] MEDS: INSULIN GLARGINE 100 UNITS/ML, PEN SQ-INSULIN SCH (10:44)
[2017-11-08] MEDS ORDERED: INSU100I11 SQ-INSULIN (11:58)
[2017-11-08] MEDS ORDERED: INSU100I13 SQ-INSULIN (11:58)
[2017-11-08] MEDS ORDERED: LISI5TAB7 PO (11:58)
[2017-11-08] MEDS ORDERED: DAPT500V6 IV (11:58)
[2017-11-08 14:00] VITALS: BP 145/85
[2017-11-08] MEDS: DAPTOMYCIN 450 MG in SODIUM CHLORIDE 0.9% 100 ML IV SCH (18:26)
[2017-11-08 19:17] VITALS: BP 167/96
[2017-11-09 01:25] VITALS: BP 154/91
[2017-11-09] MEDS: HEPARIN 5,000 UNITS/ML, 1ML SQ SCH ×2 (04:10→12:28)
[2017-11-09] MEDS: INSULIN LISPRO 100 UNITS/ML, PEN SQ-INSULIN SCH ×2 (07:54→12:30)
[2017-11-09 08:00] VITALS: BP 141/78
[2017-11-09] MEDS: LISINOPRIL 5 MG TABLET PO SCH (08:14)
[2017-11-09] MEDS: INSULIN GLARGINE 100 UNITS/ML, PEN SQ-INSULIN SCH (08:15)
[2017-11-09 12:31] VITALS: BP 152/86
== END 2017-11-09 16:14 | DRG 853 ==
LOC: ED 23:51 → EDIP 23:52 → 3NE 11-02 00:48
PROVIDERS: ADMIT Hospitalist; ATTEND Hospitalist
PROC: 0Y6R0Z3 Detachment at Right 2nd Toe, Low, Open Approach (ICD-10-PCS; 2017-11-04)
PROC: 0Y6P0Z3 Detachment at Right 1st Toe, Low, Open Approach (ICD-10-PCS; principal; 2017-11-04 06:30)
PROC: 02HV33Z Insertion of Infusion Device into Superior Vena Cava, Percutaneous Approach (ICD-10-PCS; 2017-11-07)
PROC: B548ZZA Ultrasonography of Superior Vena Cava, Guidance (ICD-10-PCS; 2017-11-07)
DX: A41.02 Sepsis due to Methicillin resistant Staphylococcus aureus (principal); N17.0 Acute kidney failure with tubular necrosis; E44.0 Moderate protein-calorie malnutrition; I31.3 Pericardial effusion (noninflammatory); M86.171 Other acute osteomyelitis, right ankle and foot; E11.621 Type 2 diabetes mellitus with foot ulcer; E11.65 Type 2 diabetes mellitus with hyperglycemia; R32 Unspecified urinary incontinence; R15.9 Full incontinence of feces; I13.10 Hypertensive heart and chronic kidney disease without heart failure, with stage 1 through stage 4 chronic kidney disease, or unspecified chronic kidney disease; E11.69 Type 2 diabetes mellitus with other specified complication; E11.42 Type 2 diabetes mellitus with diabetic polyneuropathy; E11.22 Type 2 diabetes mellitus with diabetic chronic kidney disease; E11.21 Type 2 diabetes mellitus with diabetic nephropathy; D64.9 Anemia, unspecified; L97.509 Non-pressure chronic ulcer of other part of unspecified foot with unspecified severity; N18.3 Chronic kidney disease, stage 3 (moderate); Z79.4 Long term (current) use of insulin; Z80.6 Family history of leukemia; Z86.14 Personal history of Methicillin resistant Staphylococcus aureus infection; Z87.01 Personal history of pneumonia (recurrent); Z89.422 Acquired absence of other left toe(s); Z68.21 Body mass index [BMI] 21.0-21.9, adult
CPT/HCPCS: 36415; 36569; 76937; 77001; 80048; 80053; 80202; 82550; 82728; 82962; 83036; 83540; 83550; 83605; 83735; 84145; 85025; 85045; 85610; 85651; 86140; 87040; 87070; 87075; 87076; 87077; 87147; 87186; 87205; 88305; 88311; 93005; 93306; 96365; J0878; J1644; J1815; J2250; J2405; J2543; J2704; J3010; J3370; J3490; C1751; J7030; J7050

== ENCOUNTER 2021-01-23 15:02 | Inpatient (IN) | payer MEDICARE, OTHER ==
[~2021-01-23] VITALS: Ht 167.6 cm; Wt 81.3 kg
[~2021-01-23 15:02] MED LIST changes: +AMLO-150 PO; -AMLO5TAB2 PO; +INSU100I11 SQ-INSULIN; +INSU100I13 SQ-INSULIN; +LISI5TAB7 PO
[2021-01-23 15:59] LABS: BASOPHILS % (AUTO) 0 % (0-1); EOSINOPHILS % (AUTO) 1 % (1-7); LYMPHOCYTES % (AUTO) 10 % (22-44); MEAN CORPUSCULAR HEMOGLOBIN 29.7 pg (27.5-34.5); MEAN CORPUSCULAR HGB CONC 34.1 g/dL (33.2-36.2); MEAN PLATELET VOLUME 8.8 fL (7.4-10.4); MONOCYTES % (AUTO) 9 % (2-9); NEUTROPHILS % (AUTO) 80 % (42-75); PLATELET COUNT 284 x10^3/uL (130-400); RED BLOOD COUNT 3.33 x10^6/uL (4.38-5.82); RED CELL DISTRIBUTION WIDTH 13.3 % (9.4-14.8)
[2021-01-23 16:04] LABS: ALBUMIN 3.2 g/dL (3.4-5.0); ANION GAP 8 mmol/L (5-15); CALCIUM 7.5 mg/dL (8.5-10.1); CHLORIDE 98 mmol/L (98-107)
--- NOTE | 2021-01-23 18:25 | NUR ---
TO ROOM FROM LOBBY. NAD.
--- NOTE | 2021-01-23 18:30 | NUR ---
First contact with pt. Pt reports L foot wound x2 days. Large wound noted to L lateral foot with serous drainage. swelling noted over lateral ankle as well. Pt with hx of DM with peripheral neuropathy and multiple toe amputations. Pt resting in bed, denies pain at this time.
--- NOTE | 2021-01-23 18:59 | NUR ---
RECEIVED REPORT FROM MONSERRAT MERIDA
--- NOTE | 2021-01-23 19:01 | NUR ---
Report to Keiko GERMAN.
--- NOTE | 2021-01-23 19:45 | NUR ---
PT PROVIDE UA SAMPLE, UA SENT TO LAB
[2021-01-23 20:25] LABS: MICROSCOPIC AUTO
--- NOTE | 2021-01-23 20:45 | NUR ---
PT IN RADIOLOGY
[2021-01-23] MEDS ORDERED: SODIUM CHLORIDE 0.9% 1,000ML IVBOLUS ONE (21:00)
[2021-01-23] MEDS ORDERED: VANCOMYCIN 2,000 MG in SODIUM CHLORIDE 0.9% 500 ML IV ONE (21:00)
[2021-01-23] MEDS ORDERED: VANCOMYCIN PER PHARMACY MC ONE (21:00)
[2021-01-23] MEDS ORDERED: PIPERACILLIN/TAZO 3.375 GM in DEXTROSE 5% 50 ML IVPB ONE (21:00)
--- NOTE | 2021-01-23 21:00 | NUR ---
PT RETURNED FROM US, 20G IN RIGHT FOREARM, BLOOD CULTURES DRAW AND ANTIBIOTICS STARTED. PT RESTING ON GURNEY, DENIES NEEDS AT THIS TIME.
[2021-01-23] MEDS ORDERED: ASPI-614 PO (21:50)
[2021-01-23] MEDS ORDERED: GABA600T7 PO (21:52)
--- NOTE | 2021-01-23 22:20 | NUR ---
PT RESTING ON GURNEY, DENIES NEEDS AT THIS TIME.
--- NOTE | 2021-01-23 22:20 | NUR ---
Pt to be admitted to NEURO TELE, room 490-1. Report called to MONSERRAT ROMERO.
[2021-01-23] MEDS ORDERED: PIPERACILLIN/TAZO 3.375 GM in DEXTROSE 5% 50 ML IV SCH (23:00)
[2021-01-23] MEDS ORDERED: PHARMACOKINETIC MONITORING MC PRN (23:00)
[2021-01-23] MEDS ORDERED: PHARMACOKINETIC CONSULTATION MC ONE (23:00)
[2021-01-23] MEDS ORDERED: GABAPENTIN 300 MG CAPSULE PO PRN (23:00)
[2021-01-23] MEDS ORDERED: DEXTROSE 4 GM TAB.CHEW PO PRN (23:00)
[2021-01-23] MEDS ORDERED: DEXTROSE 50%, 50ML SYRINGE IVPush PRN (23:00)
[2021-01-23] MEDS ORDERED: ONDANSETRON 2MG/ML, 2ML IVPush PRN (23:00)
[2021-01-23] MEDS ORDERED: LABETALOL 5MG/ML, 20ML IVPush PRN (23:00)
[2021-01-23] MEDS ORDERED: VANCOMYCIN PER PHARMACY MC PRN (23:00)
[2021-01-23] MEDS ORDERED: GLUCAGON 1 MG IM PRN (23:00)
[2021-01-23] MEDS ORDERED: PHARMACY MAY ADJ FOR RENAL FX MC PRN (23:00)
[2021-01-23 23:10] LABS: ALBUMIN 3.1 g/dL (3.4-5.0); BILIRUBIN, DIRECT 0.1 mg/dL (0.1-0.2)
[2021-01-23 23:12] LABS: BILIRUBIN,INDIRECT 0.3 mg/dL (0.0-2.0); BILIRUBIN,TOTAL 0.4 mg/dL (0.2-1.0); TOTAL PROTEIN 7.2 g/dL (6.4-8.2)
[2021-01-23 23:24] VITALS: BP 146/71
[2021-01-23] MEDS: ATORVASTATIN 80 MG TABLET PO SCH (23:52)
[2021-01-23] MEDS: HEPARIN 5,000 UNITS/ML, 1ML SQ SCH (23:52)
[2021-01-24] MEDS: INSULIN GLARGINE 100 UNITS/ML, PEN SQ-INSULIN SCH ×2 (00:18→20:18)
[2021-01-24 00:31] VITALS: BP 150/72
[2021-01-24 05:44] LABS: CHLORIDE 105 mmol/L (98-107)
[2021-01-24 05:47] LABS: BASOPHILS % (AUTO) 0 % (0-1); EOSINOPHILS % (AUTO) 2 % (1-7); LYMPHOCYTES % (AUTO) 18 % (22-44); MEAN CORPUSCULAR HEMOGLOBIN 30.6 pg (27.5-34.5); MEAN CORPUSCULAR HGB CONC 34.7 g/dL (33.2-36.2); MEAN PLATELET VOLUME 8.9 fL (7.4-10.4); MONOCYTES % (AUTO) 11 % (2-9); NEUTROPHILS % (AUTO) 68 % (42-75); PLATELET COUNT 283 x10^3/uL (130-400); RED BLOOD COUNT 3.25 x10^6/uL (4.38-5.82); RED CELL DISTRIBUTION WIDTH 13.4 % (9.4-14.8)
[2021-01-24 05:54] LABS: ANION GAP 6 mmol/L (5-15); CALCIUM 7.3 mg/dL (8.5-10.1); CHOL/HDL RATIO 1.7; CHOLESTEROL, TOTAL 84 mg/dL (140-239); CREATININE 1.57 mg/dL (0.7-1.3); HDL CHOL % 60 % (26-37); HDL CHOLESTEROL (DIRECT) 50 mg/dL (40-60); LDL CHOLESTEROL,CALCULATED 20 mg/dL (54-169); LDL/HDL RATIO 0.4 (0.5-3.0); TRIGLYCERIDES 71 mg/dL (50-200); VLDL CHOLESTEROL 14 mg/dL (0-25)
[2021-01-24] MEDS: INSULIN LISPRO 100 UNITS/ML, PEN SQ-INSULIN SCH ×4 (07:00→20:11)
[2021-01-24 07:26] VITALS: BP 124/65
[2021-01-24] MEDS: HEPARIN 5,000 UNITS/ML, 1ML SQ SCH ×3 (07:40→23:23)
[2021-01-24] MEDS: SODIUM CHLORIDE FLUSH 10ML SYR IVF SCH ×2 (09:00→20:19)
[2021-01-24] MEDS: SENNA/DOCUSATE TABLET PO SCH (09:16)
[2021-01-24] MEDS: ASPIRIN 81 MG TABLET CHEW PO SCH (09:16)
[2021-01-24] MEDS: MEROPENEM 500 MG in SODIUM CHLORIDE 0.9% 100 ML IV SCH ×2 (10:48→23:14)
[2021-01-24 12:39] VITALS: BP 163/78
[2021-01-24 13:17] VITALS: BP 163/78
[2021-01-24 16:23] LABS: HCT (SEDRATE) 29.7 % (39.2-51.8)
[2021-01-24] MEDS: VANCOMYCIN 1,500 MG in SODIUM CHLORIDE 0.9% 250 ML IV SCH (17:58)
[2021-01-24 19:53] VITALS: BP 148/68
[2021-01-24] MEDS: ATORVASTATIN 80 MG TABLET PO SCH (20:18)
[2021-01-25 01:24] VITALS: BP 143/71
[2021-01-25] MEDS ORDERED: AMLO-150 PO (02:59)
[2021-01-25] MEDS ORDERED: ATOR40TA78 PO (03:00)
[2021-01-25] MEDS ORDERED: GABA-827 PO (03:03)
[2021-01-25 05:25] LABS: BASOPHILS % (AUTO) 1 % (0-1); EOSINOPHILS % (AUTO) 3 % (1-7); LYMPHOCYTES % (AUTO) 23 % (22-44); MEAN CORPUSCULAR HEMOGLOBIN 30.4 pg (27.5-34.5); MEAN CORPUSCULAR HGB CONC 34.4 g/dL (33.2-36.2); MEAN PLATELET VOLUME 8.9 fL (7.4-10.4); MONOCYTES % (AUTO) 9 % (2-9); NEUTROPHILS % (AUTO) 65 % (42-75); PLATELET COUNT 324 x10^3/uL (130-400); RED BLOOD COUNT 3.29 x10^6/uL (4.38-5.82); RED CELL DISTRIBUTION WIDTH 13.5 % (9.4-14.8)
[2021-01-25 05:35] LABS: CHLORIDE 108 mmol/L (98-107)
[2021-01-25 05:40] LABS: ANION GAP 9 mmol/L (5-15); CALCIUM 7.6 mg/dL (8.5-10.1); CREATININE 1.29 mg/dL (0.7-1.3)
[2021-01-25] MEDS: INSULIN LISPRO 100 UNITS/ML, PEN SQ-INSULIN SCH ×4 (07:00→20:18)
[2021-01-25 07:32] VITALS: BP 148/71
[2021-01-25] MEDS: ASPIRIN 81 MG TABLET CHEW PO SCH (08:45)
[2021-01-25] MEDS: SENNA/DOCUSATE TABLET PO SCH (08:45)
[2021-01-25] MEDS: HEPARIN 5,000 UNITS/ML, 1ML SQ SCH ×3 (08:45→23:08)
[2021-01-25] MEDS: SODIUM CHLORIDE FLUSH 10ML SYR IVF SCH ×2 (08:46→20:17)
[2021-01-25] MEDS: MEROPENEM 500 MG in SODIUM CHLORIDE 0.9% 100 ML IV SCH ×2 (11:01→23:08)
[2021-01-25 12:18] VITALS: BP 159/67
[2021-01-25] MEDS: ACETAMINOPHEN 325 MG TABLET PO PRN ×2 (16:03→20:17)
[2021-01-25] MEDS: VANCOMYCIN 1,500 MG in SODIUM CHLORIDE 0.9% 250 ML IV SCH (16:55)
[2021-01-25 19:38] VITALS: BP 163/77
[2021-01-25] MEDS: ATORVASTATIN 80 MG TABLET PO SCH (20:17)
[2021-01-25] MEDS: INSULIN GLARGINE 100 UNITS/ML, PEN SQ-INSULIN SCH (20:18)
[2021-01-25] MEDS: MELATONIN 5 MG TABLET PO PRN (23:08)
[2021-01-26 01:37] VITALS: BP 145/76
[2021-01-26] MEDS: INSULIN LISPRO 100 UNITS/ML, PEN SQ-INSULIN SCH ×4 (07:00→21:06)
[2021-01-26 07:44] VITALS: BP 163/87
[2021-01-26] MEDS: HEPARIN 5,000 UNITS/ML, 1ML SQ SCH ×3 (08:39→23:12)
[2021-01-26] MEDS: SODIUM CHLORIDE FLUSH 10ML SYR IVF SCH ×2 (08:39→20:54)
[2021-01-26] MEDS: SENNA/DOCUSATE TABLET PO SCH (08:39)
[2021-01-26] MEDS: ASPIRIN 81 MG TABLET CHEW PO SCH (08:39)
[2021-01-26] MEDS: ACETAMINOPHEN 325 MG TABLET PO PRN ×2 (08:44→20:53)
[2021-01-26] MEDS: MEROPENEM 500 MG in SODIUM CHLORIDE 0.9% 100 ML IV SCH ×2 (10:05→23:12)
[2021-01-26 12:16] VITALS: BP 149/65
[2021-01-26 19:11] VITALS: BP 176/79
[2021-01-26 20:52] VITALS: BP 165/83
[2021-01-26] MEDS: ATORVASTATIN 80 MG TABLET PO SCH (20:54)
[2021-01-26] MEDS: MELATONIN 5 MG TABLET PO PRN (20:54)
[2021-01-26] MEDS: INSULIN GLARGINE 100 UNITS/ML, PEN SQ-INSULIN SCH (21:07)
[2021-01-27 01:52] VITALS: BP 129/68
[2021-01-27] MEDS ORDERED: VANCOMYCIN 1,500 MG in SODIUM CHLORIDE 0.9% 250 ML IV SCH (05:00)
[2021-01-27 05:06] LABS: ANION GAP 7 mmol/L (5-15); CALCIUM 8.2 mg/dL (8.5-10.1); CHLORIDE 108 mmol/L (98-107)
[2021-01-27] MEDS: INSULIN LISPRO 100 UNITS/ML, PEN SQ-INSULIN SCH ×2 (07:00→10:52)
[2021-01-27] MEDS ORDERED: MAGNESIUM SULFATE PMX 2GM/50ML 50 ML IV ONE (07:30)
[2021-01-27] MEDS ORDERED: ERTAPENEM 1 GM in SODIUM CHLORIDE 0.9% 50 ML IV SCH (07:30)
[2021-01-27] MEDS: ASPIRIN 81 MG TABLET CHEW PO SCH (07:57)
[2021-01-27] MEDS: HEPARIN 5,000 UNITS/ML, 1ML SQ SCH (07:57)
[2021-01-27] MEDS: ACETAMINOPHEN 325 MG TABLET PO PRN (07:57)
[2021-01-27] MEDS: SENNA/DOCUSATE TABLET PO SCH (07:57)
[2021-01-27] MEDS: SODIUM CHLORIDE FLUSH 10ML SYR IVF SCH (07:58)
[2021-01-27 08:23] VITALS: BP 174/84
[2021-01-27 13:19] VITALS: BP 174/84
[2021-01-27] MEDS ORDERED: AMOX1TAB64 PO (13:34)
[2021-01-27] MEDS ORDERED: ACET-1600 PO (13:34)
== END 2021-01-27 17:04 | disposition home health service (06) | DRG 638 ==
LOC: ED 18:59 → EDIP 21:46 → 4EST 22:51
PROVIDERS: ADMIT Family Medicine; ATTEND Internal Medicine
DX: E11.628 Type 2 diabetes mellitus with other skin complications (principal); L03.116 Cellulitis of left lower limb; E87.1 Hypo-osmolality and hyponatremia; N17.0 Acute kidney failure with tubular necrosis; E11.621 Type 2 diabetes mellitus with foot ulcer; B95.61 Methicillin susceptible Staphylococcus aureus infection as the cause of diseases classified elsewhere; D64.9 Anemia, unspecified; E11.22 Type 2 diabetes mellitus with diabetic chronic kidney disease; E11.40 Type 2 diabetes mellitus with diabetic neuropathy, unspecified; E11.51 Type 2 diabetes mellitus with diabetic peripheral angiopathy without gangrene; E78.5 Hyperlipidemia, unspecified; E83.51 Hypocalcemia; E86.0 Dehydration; E86.1 Hypovolemia; E87.5 Hyperkalemia; G89.29 Other chronic pain; I12.9 Hypertensive chronic kidney disease with stage 1 through stage 4 chronic kidney disease, or unspecified chronic kidney disease; L97.529 Non-pressure chronic ulcer of other part of left foot with unspecified severity; N18.9 Chronic kidney disease, unspecified; Z80.6 Family history of leukemia; Z86.14 Personal history of Methicillin resistant Staphylococcus aureus infection; Z87.891 Personal history of nicotine dependence; Z89.429 Acquired absence of other toe(s), unspecified side; Z56.0 Unemployment, unspecified; Z79.899 Other long term (current) drug therapy
CPT/HCPCS: 36415; 80048; 80061; 80076; 80202; 81001; 82040; 82962; 83605; 83735; 84100; 84132; 84145; 84295; 85025; 85651; 86140; 87040; 87070; 87077; 87186; 87205; 93922; 96374; 96375; G0378; J1335; J1644; J2185; J2543; J3370; J1815; J3475; J7030; J7040; J7050

== ENCOUNTER 2021-02-02 12:22 | Outpatient (CLI) | payer MEDICARE ==
[~2021-02-02 12:22] MED LIST changes: +ACET-1600 PO; +ASPI-614 PO; +ATOR40TA78 PO; -DOXY100C2 PO; +DOXY100C5 PO; +GABA-827 PO; +GABA600T7 PO
[2021-04-28] MEDS ORDERED: CARV6.2512 PO ×2 (15:59→16:20)
[2021-04-28] MEDS ORDERED: SENN-211 PO ×2 (15:59→16:20)
[2021-04-28] MEDS ORDERED: HYDR-3342 PO ×2 (15:59→16:20)
[2021-04-28] MEDS ORDERED: METF850T10 PO ×2 (15:59→16:20)
[2021-04-28] MEDS ORDERED: GABA300C PO (16:20)
[2021-04-28] MEDS ORDERED: LISI5TAB7 PO (16:20)
[2021-04-28] MEDS ORDERED: ASPI-963 PO (16:20)
[2021-04-28] MEDS ORDERED: INSU100I11 SQ-INSULIN (16:20)
== END 2021-02-02 23:59 | disposition home or self-care (01) ==
LOC: WOUND 12:22
PROVIDERS: ATTEND Internal Medicine
DX: E11.621 Type 2 diabetes mellitus with foot ulcer (principal); L97.522 Non-pressure chronic ulcer of other part of left foot with fat layer exposed; L97.512 Non-pressure chronic ulcer of other part of right foot with fat layer exposed; L03.115 Cellulitis of right lower limb; E11.42 Type 2 diabetes mellitus with diabetic polyneuropathy; E78.5 Hyperlipidemia, unspecified; G89.29 Other chronic pain; E11.51 Type 2 diabetes mellitus with diabetic peripheral angiopathy without gangrene; E11.22 Type 2 diabetes mellitus with diabetic chronic kidney disease; I12.9 Hypertensive chronic kidney disease with stage 1 through stage 4 chronic kidney disease, or unspecified chronic kidney disease; N18.9 Chronic kidney disease, unspecified; L84 Corns and callosities; Z86.14 Personal history of Methicillin resistant Staphylococcus aureus infection; Z89.422 Acquired absence of other left toe(s); Z79.899 Other long term (current) drug therapy; Z87.891 Personal history of nicotine dependence; Z79.4 Long term (current) use of insulin; Z79.82 Long term (current) use of aspirin
CPT/HCPCS: 11042; G0463

== ENCOUNTER → 2021-02-03 | Outpatient (CLI) | payer MEDICARE ==
[~2021-02-03] MED LIST changes: +DOXY100C2 PO; -DOXY100C5 PO
== END | disposition home or self-care (01) ==
LOC: CFH 08:54
PROVIDERS: ATTEND Internal Medicine
DX: J98.4 Other disorders of lung (principal); E11.621 Type 2 diabetes mellitus with foot ulcer; L97.509 Non-pressure chronic ulcer of other part of unspecified foot with unspecified severity
CPT/HCPCS: 71046

== ENCOUNTER 2021-02-12 09:52 | Outpatient (CLI) | payer MEDICARE ==
[~2021-02-12 09:52] MED LIST changes: -DOXY100C2 PO; +DOXY100C5 PO
[2021-04-28] MEDS ORDERED: SENN-211 PO ×2 (15:59→16:20)
[2021-04-28] MEDS ORDERED: HYDR-3342 PO ×2 (15:59→16:20)
[2021-04-28] MEDS ORDERED: METF850T10 PO ×2 (15:59→16:20)
[2021-04-28] MEDS ORDERED: CARV6.2512 PO ×2 (15:59→16:20)
[2021-04-28] MEDS ORDERED: GABA300C PO (16:20)
[2021-04-28] MEDS ORDERED: LISI5TAB7 PO (16:20)
[2021-04-28] MEDS ORDERED: INSU100I11 SQ-INSULIN (16:20)
[2021-04-28] MEDS ORDERED: ASPI-963 PO (16:20)
== END 2021-02-12 23:59 | disposition home or self-care (01) ==
LOC: WOUND 09:52
PROVIDERS: ATTEND Internal Medicine
DX: E11.621 Type 2 diabetes mellitus with foot ulcer (principal); L97.522 Non-pressure chronic ulcer of other part of left foot with fat layer exposed; L97.512 Non-pressure chronic ulcer of other part of right foot with fat layer exposed; L03.115 Cellulitis of right lower limb; E11.42 Type 2 diabetes mellitus with diabetic polyneuropathy; E78.5 Hyperlipidemia, unspecified; G89.29 Other chronic pain; E11.51 Type 2 diabetes mellitus with diabetic peripheral angiopathy without gangrene; E11.22 Type 2 diabetes mellitus with diabetic chronic kidney disease; I12.9 Hypertensive chronic kidney disease with stage 1 through stage 4 chronic kidney disease, or unspecified chronic kidney disease; N18.9 Chronic kidney disease, unspecified; L84 Corns and callosities; Z86.14 Personal history of Methicillin resistant Staphylococcus aureus infection; Z89.422 Acquired absence of other left toe(s); Z79.899 Other long term (current) drug therapy; Z87.891 Personal history of nicotine dependence; Z79.4 Long term (current) use of insulin; Z79.82 Long term (current) use of aspirin
CPT/HCPCS: 11042

== ENCOUNTER → 2021-02-19 | Outpatient (CLI) | payer MEDICARE ==
[~2021-02-19] MED LIST changes: +DOXY100C2 PO; -DOXY100C5 PO
== END | disposition home or self-care (01) ==
LOC: WOUND 10:20
PROVIDERS: ATTEND Podiatrist Foot & Ankle Surgery
DX: E11.621 Type 2 diabetes mellitus with foot ulcer (principal); L97.522 Non-pressure chronic ulcer of other part of left foot with fat layer exposed; L97.512 Non-pressure chronic ulcer of other part of right foot with fat layer exposed; L03.115 Cellulitis of right lower limb; E11.42 Type 2 diabetes mellitus with diabetic polyneuropathy; E78.5 Hyperlipidemia, unspecified; G89.29 Other chronic pain; E11.51 Type 2 diabetes mellitus with diabetic peripheral angiopathy without gangrene; E11.22 Type 2 diabetes mellitus with diabetic chronic kidney disease; I12.9 Hypertensive chronic kidney disease with stage 1 through stage 4 chronic kidney disease, or unspecified chronic kidney disease; N18.9 Chronic kidney disease, unspecified; L84 Corns and callosities; Z86.14 Personal history of Methicillin resistant Staphylococcus aureus infection; Z89.422 Acquired absence of other left toe(s); Z79.899 Other long term (current) drug therapy; Z87.891 Personal history of nicotine dependence; Z79.4 Long term (current) use of insulin
CPT/HCPCS: 15275; Q4101

== ENCOUNTER 2021-02-26 08:21 | Outpatient (CLI) | payer MEDICARE | END 2021-02-26 23:59 | disposition home or self-care (01) | LOC: WOUND 08:21 | PROVIDERS: ATTEND Podiatrist Foot & Ankle Surgery | DX: E11.621 Type 2 diabetes mellitus with foot ulcer (principal); L97.522 Non-pressure chronic ulcer of other part of left foot with fat layer exposed; L97.512 Non-pressure chronic ulcer of other part of right foot with fat layer exposed; L03.115 Cellulitis of right lower limb; E11.42 Type 2 diabetes mellitus with diabetic polyneuropathy; E78.5 Hyperlipidemia, unspecified; G89.29 Other chronic pain; E11.51 Type 2 diabetes mellitus with diabetic peripheral angiopathy without gangrene; E11.22 Type 2 diabetes mellitus with diabetic chronic kidney disease; I12.9 Hypertensive chronic kidney disease with stage 1 through stage 4 chronic kidney disease, or unspecified chronic kidney disease; N18.9 Chronic kidney disease, unspecified; L84 Corns and callosities; Z86.14 Personal history of Methicillin resistant Staphylococcus aureus infection; Z89.422 Acquired absence of other left toe(s); Z79.899 Other long term (current) drug therapy; Z87.891 Personal history of nicotine dependence; Z79.4 Long term (current) use of insulin | CPT/HCPCS: 15275; Q4101 ==

== ENCOUNTER → 2021-03-05 | Outpatient (CLI) | payer MEDICARE | END | disposition home or self-care (01) | LOC: WOUND 09:52 | PROVIDERS: ATTEND Podiatrist Foot & Ankle Surgery | DX: E11.621 Type 2 diabetes mellitus with foot ulcer (principal); L97.521 Non-pressure chronic ulcer of other part of left foot limited to breakdown of skin; L97.512 Non-pressure chronic ulcer of other part of right foot with fat layer exposed; L03.115 Cellulitis of right lower limb; E11.42 Type 2 diabetes mellitus with diabetic polyneuropathy; E78.5 Hyperlipidemia, unspecified; G89.29 Other chronic pain; E11.51 Type 2 diabetes mellitus with diabetic peripheral angiopathy without gangrene; E11.22 Type 2 diabetes mellitus with diabetic chronic kidney disease; I12.9 Hypertensive chronic kidney disease with stage 1 through stage 4 chronic kidney disease, or unspecified chronic kidney disease; N18.9 Chronic kidney disease, unspecified; L84 Corns and callosities; Z86.14 Personal history of Methicillin resistant Staphylococcus aureus infection; Z89.422 Acquired absence of other left toe(s); Z79.899 Other long term (current) drug therapy; Z87.891 Personal history of nicotine dependence; Z79.4 Long term (current) use of insulin | CPT/HCPCS: 15275; Q4101 ==

== ENCOUNTER 2021-03-12 07:44 | Outpatient (CLI) | payer MEDICARE ==
[~2021-03-12 07:44] MED LIST changes: -DOXY100C2 PO; +DOXY100C5 PO
[2021-04-28] MEDS ORDERED: CARV6.2512 PO ×2 (15:59→16:20)
[2021-04-28] MEDS ORDERED: HYDR-3342 PO ×2 (15:59→16:20)
[2021-04-28] MEDS ORDERED: SENN-211 PO ×2 (15:59→16:20)
[2021-04-28] MEDS ORDERED: METF850T10 PO ×2 (15:59→16:20)
[2021-04-28] MEDS ORDERED: LISI5TAB7 PO (16:20)
[2021-04-28] MEDS ORDERED: GABA300C PO (16:20)
[2021-04-28] MEDS ORDERED: ASPI-963 PO (16:20)
[2021-04-28] MEDS ORDERED: INSU100I11 SQ-INSULIN (16:20)
== END 2021-03-12 23:59 | disposition home or self-care (01) ==
LOC: WOUND 07:44
PROVIDERS: ATTEND Podiatrist Foot & Ankle Surgery
DX: E11.621 Type 2 diabetes mellitus with foot ulcer (principal); L97.521 Non-pressure chronic ulcer of other part of left foot limited to breakdown of skin; L97.512 Non-pressure chronic ulcer of other part of right foot with fat layer exposed; L03.115 Cellulitis of right lower limb; E11.42 Type 2 diabetes mellitus with diabetic polyneuropathy; E78.5 Hyperlipidemia, unspecified; G89.29 Other chronic pain; E11.51 Type 2 diabetes mellitus with diabetic peripheral angiopathy without gangrene; E11.22 Type 2 diabetes mellitus with diabetic chronic kidney disease; I12.9 Hypertensive chronic kidney disease with stage 1 through stage 4 chronic kidney disease, or unspecified chronic kidney disease; N18.9 Chronic kidney disease, unspecified; D63.1 Anemia in chronic kidney disease; E11.69 Type 2 diabetes mellitus with other specified complication; M86.8X7 Other osteomyelitis, ankle and foot; M17.10 Unilateral primary osteoarthritis, unspecified knee; L84 Corns and callosities; Z86.14 Personal history of Methicillin resistant Staphylococcus aureus infection; Z89.422 Acquired absence of other left toe(s); Z79.899 Other long term (current) drug therapy; Z87.891 Personal history of nicotine dependence; Z79.4 Long term (current) use of insulin; Z79.82 Long term (current) use of aspirin; Z20.822 Contact with and (suspected) exposure to COVID-19
CPT/HCPCS: 15275; Q4101

== ENCOUNTER 2021-03-19 11:33 | Outpatient (CLI) | payer MEDICARE ==
[2021-04-28] MEDS ORDERED: SENN-211 PO ×2 (15:59→16:20)
[2021-04-28] MEDS ORDERED: HYDR-3342 PO ×2 (15:59→16:20)
[2021-04-28] MEDS ORDERED: METF850T10 PO ×2 (15:59→16:20)
[2021-04-28] MEDS ORDERED: CARV6.2512 PO ×2 (15:59→16:20)
[2021-04-28] MEDS ORDERED: ASPI-963 PO (16:20)
[2021-04-28] MEDS ORDERED: GABA300C PO (16:20)
[2021-04-28] MEDS ORDERED: INSU100I11 SQ-INSULIN (16:20)
[2021-04-28] MEDS ORDERED: LISI5TAB7 PO (16:20)
== END 2021-03-19 23:59 | disposition home or self-care (01) ==
LOC: WOUND 11:33
PROVIDERS: ATTEND Podiatrist Foot & Ankle Surgery
DX: E11.621 Type 2 diabetes mellitus with foot ulcer (principal); L97.512 Non-pressure chronic ulcer of other part of right foot with fat layer exposed; L97.522 Non-pressure chronic ulcer of other part of left foot with fat layer exposed; L03.115 Cellulitis of right lower limb; E11.42 Type 2 diabetes mellitus with diabetic polyneuropathy; E78.5 Hyperlipidemia, unspecified; G89.29 Other chronic pain; E11.51 Type 2 diabetes mellitus with diabetic peripheral angiopathy without gangrene; E11.22 Type 2 diabetes mellitus with diabetic chronic kidney disease; I12.9 Hypertensive chronic kidney disease with stage 1 through stage 4 chronic kidney disease, or unspecified chronic kidney disease; N18.9 Chronic kidney disease, unspecified; D63.1 Anemia in chronic kidney disease; E11.69 Type 2 diabetes mellitus with other specified complication; M86.8X7 Other osteomyelitis, ankle and foot; M17.0 Bilateral primary osteoarthritis of knee; L84 Corns and callosities; Z86.14 Personal history of Methicillin resistant Staphylococcus aureus infection; Z89.422 Acquired absence of other left toe(s); Z79.899 Other long term (current) drug therapy; Z87.891 Personal history of nicotine dependence; Z79.4 Long term (current) use of insulin; Z79.82 Long term (current) use of aspirin; Z20.822 Contact with and (suspected) exposure to COVID-19
CPT/HCPCS: 15275; Q4101

== ENCOUNTER → 2021-03-26 | Outpatient (CLI) | payer MEDICARE ==
[~2021-03-26] MED LIST changes: +DOXY100C2 PO; -DOXY100C5 PO
== END | disposition home or self-care (01) ==
LOC: WOUND 07:53
PROVIDERS: ATTEND Podiatrist Foot & Ankle Surgery
DX: E11.621 Type 2 diabetes mellitus with foot ulcer (principal); L97.522 Non-pressure chronic ulcer of other part of left foot with fat layer exposed; L97.512 Non-pressure chronic ulcer of other part of right foot with fat layer exposed; L03.115 Cellulitis of right lower limb; E11.42 Type 2 diabetes mellitus with diabetic polyneuropathy; E78.5 Hyperlipidemia, unspecified; G89.29 Other chronic pain; E11.51 Type 2 diabetes mellitus with diabetic peripheral angiopathy without gangrene; E11.22 Type 2 diabetes mellitus with diabetic chronic kidney disease; I12.9 Hypertensive chronic kidney disease with stage 1 through stage 4 chronic kidney disease, or unspecified chronic kidney disease; N18.9 Chronic kidney disease, unspecified; L84 Corns and callosities; Z86.14 Personal history of Methicillin resistant Staphylococcus aureus infection; Z89.422 Acquired absence of other left toe(s); Z79.899 Other long term (current) drug therapy; Z87.891 Personal history of nicotine dependence; Z79.4 Long term (current) use of insulin; Z79.82 Long term (current) use of aspirin
CPT/HCPCS: 11042

== ENCOUNTER 2021-04-02 08:11 | Outpatient (CLI) | payer MEDICARE ==
[~2021-04-02 08:11] MED LIST changes: -DOXY100C2 PO; +DOXY100C5 PO
[2021-04-28] MEDS ORDERED: CARV6.2512 PO ×2 (15:59→16:20)
[2021-04-28] MEDS ORDERED: METF850T10 PO ×2 (15:59→16:20)
[2021-04-28] MEDS ORDERED: SENN-211 PO ×2 (15:59→16:20)
[2021-04-28] MEDS ORDERED: HYDR-3342 PO ×2 (15:59→16:20)
[2021-04-28] MEDS ORDERED: LISI5TAB7 PO (16:20)
[2021-04-28] MEDS ORDERED: INSU100I11 SQ-INSULIN (16:20)
[2021-04-28] MEDS ORDERED: ASPI-963 PO (16:20)
[2021-04-28] MEDS ORDERED: GABA300C PO (16:20)
== END 2021-04-02 23:59 | disposition home or self-care (01) ==
LOC: WOUND 08:11
PROVIDERS: ATTEND Podiatrist Foot & Ankle Surgery
DX: E11.621 Type 2 diabetes mellitus with foot ulcer (principal); L97.521 Non-pressure chronic ulcer of other part of left foot limited to breakdown of skin; L97.512 Non-pressure chronic ulcer of other part of right foot with fat layer exposed; L03.115 Cellulitis of right lower limb; E11.42 Type 2 diabetes mellitus with diabetic polyneuropathy; E78.5 Hyperlipidemia, unspecified; G89.29 Other chronic pain; E11.51 Type 2 diabetes mellitus with diabetic peripheral angiopathy without gangrene; E11.22 Type 2 diabetes mellitus with diabetic chronic kidney disease; I12.9 Hypertensive chronic kidney disease with stage 1 through stage 4 chronic kidney disease, or unspecified chronic kidney disease; N18.9 Chronic kidney disease, unspecified; L84 Corns and callosities; Z86.14 Personal history of Methicillin resistant Staphylococcus aureus infection; Z89.422 Acquired absence of other left toe(s); Z79.899 Other long term (current) drug therapy; Z87.891 Personal history of nicotine dependence; Z79.4 Long term (current) use of insulin; Z79.82 Long term (current) use of aspirin
CPT/HCPCS: 97597

== ENCOUNTER → 2021-04-30 | Outpatient (CLI) | payer MEDICARE ==
[~2021-04-30] MED LIST changes: +ASPI-963 PO; +CARV6.2512 PO; +GABA300C PO; +HYDR-3342 PO; +METF850T10 PO; +SENN-211 PO
== END | disposition home or self-care (01) ==
LOC: WOUND 09:52
PROVIDERS: ATTEND Podiatrist Foot & Ankle Surgery
DX: E11.621 Type 2 diabetes mellitus with foot ulcer (principal); L97.521 Non-pressure chronic ulcer of other part of left foot limited to breakdown of skin; L97.512 Non-pressure chronic ulcer of other part of right foot with fat layer exposed; L03.115 Cellulitis of right lower limb; E11.42 Type 2 diabetes mellitus with diabetic polyneuropathy; E78.5 Hyperlipidemia, unspecified; G89.29 Other chronic pain; E11.51 Type 2 diabetes mellitus with diabetic peripheral angiopathy without gangrene; E11.22 Type 2 diabetes mellitus with diabetic chronic kidney disease; I12.9 Hypertensive chronic kidney disease with stage 1 through stage 4 chronic kidney disease, or unspecified chronic kidney disease; N18.9 Chronic kidney disease, unspecified; D63.1 Anemia in chronic kidney disease; E11.69 Type 2 diabetes mellitus with other specified complication; M86.8X7 Other osteomyelitis, ankle and foot; M17.10 Unilateral primary osteoarthritis, unspecified knee; L84 Corns and callosities; Z86.14 Personal history of Methicillin resistant Staphylococcus aureus infection; Z89.422 Acquired absence of other left toe(s); Z79.899 Other long term (current) drug therapy; Z87.891 Personal history of nicotine dependence; Z79.4 Long term (current) use of insulin; Z79.82 Long term (current) use of aspirin; Z20.822 Contact with and (suspected) exposure to COVID-19
CPT/HCPCS: 97597

== ENCOUNTER → 2021-05-07 | Outpatient (CLI) | payer MEDICARE | END | disposition home or self-care (01) | LOC: WOUND 10:32 | PROVIDERS: ATTEND Podiatrist Foot & Ankle Surgery | DX: E11.621 Type 2 diabetes mellitus with foot ulcer (principal); L97.521 Non-pressure chronic ulcer of other part of left foot limited to breakdown of skin; L97.512 Non-pressure chronic ulcer of other part of right foot with fat layer exposed; L03.115 Cellulitis of right lower limb; E11.42 Type 2 diabetes mellitus with diabetic polyneuropathy; E78.5 Hyperlipidemia, unspecified; G89.29 Other chronic pain; E11.51 Type 2 diabetes mellitus with diabetic peripheral angiopathy without gangrene; E11.22 Type 2 diabetes mellitus with diabetic chronic kidney disease; I12.9 Hypertensive chronic kidney disease with stage 1 through stage 4 chronic kidney disease, or unspecified chronic kidney disease; N18.9 Chronic kidney disease, unspecified; D63.1 Anemia in chronic kidney disease; E11.69 Type 2 diabetes mellitus with other specified complication; M86.172 Other acute osteomyelitis, left ankle and foot; L84 Corns and callosities; M17.0 Bilateral primary osteoarthritis of knee; Z86.14 Personal history of Methicillin resistant Staphylococcus aureus infection; Z89.422 Acquired absence of other left toe(s); Z79.899 Other long term (current) drug therapy; Z87.891 Personal history of nicotine dependence; Z79.4 Long term (current) use of insulin; Z79.82 Long term (current) use of aspirin; Z20.822 Contact with and (suspected) exposure to COVID-19 ==